=== PATIENT | female | born 1990 ===

== ENCOUNTER 2020-11-10 09:09 | Outpatient (CLI) | payer MEDICAID, SELFPAY ==
--- NOTE | 2020-11-09 | DI.US_ITS ---
Exam(s) US OB AUNDREA WEIGHT EXAM: US OB AUNDREA WEIGHT CLINICAL HISTORY: GROWTH SCAN,HYPERTENSION,O10.919. TECHNIQUE: Transabdominal obstetrical ultrasound performed. COMPARISON: No exams were available for comparison FINDINGS: Transabdominal obstetrical ultrasound performed. FINDINGS: Number of fetuses: One. position: Cephalic. Placental location: Anterior. There is a grade 1 placenta. No evidence of previa. BIOMETRIC DATA: BPD: 85 mm = 34 weeks 1 day HC: 297 mm = 32 weeks 6 days AC: 295 mm = 33 weeks 3 days FL: 67 mm = 34 weeks 4 days EFW: 2275 grms 70% Composite Age: 33 weeks 5 days EDC: 12/23/2020 Heart Rate: 137BPM Amniotic fluid index: 13.5 cm. Visually, amount of fluid is within normal limits. IMPRESSION: 1. Single live intrauterine gestation as above. 2. Estimated weight is 5gms. 3. Amniotic fluid index is 13.5 cm. Visually within normal limits. DATA REPOSITORY:
--- NOTE | 2020-11-26 09:58 | W.ANESCON ---
General Date of Service Date of Service: 11/26/20 Reason for Consult Requesting Provider: Sandra Steve How Consult Conducted:: Seen in Office Reason for Consult:: Back pain, herniated discs, epidural questions Consult Recommendation after Review:: 30 year old patient with history of chronic back pain, prior back surgery (as a teen) to address herniated discs (L1-L5). Patient is not being followed by neurosurgery at this time. Planned epidural for pain management, informed patient to request anesthesia services earlier than later in labor as placement of catheter may be technically challenging and ultrasound may be necessary. Patient verbalizes understanding of the plan. Height: 6 ft 1 in Weight: 133.3 kg Body Mass Index (BMI): 38.7 Meds Allergies and Home Medications Allergies Allergy/AdvReac Type Severity Reaction Status Date / Time No Known Allergies Allergy Verified 11/26/20 08:43 Home Medication Medication Instructions Recorded prenat.vits,gigi,slu-bdnd-gzrlv 1 tab PO DAILY 11/26/20 sertraline 100 mg tablet 100 mg PO DAILY 11/26/20 sertraline 50 mg tablet 50 mg PO DAILY 11/26/20 [facility] Active Problems Active Problems: Problem Status Onset Code Z34.90 Vital Signs & Lab Results Point of Care Results Nursing Point of Care Results: No Data to Display Lab Results Blood Type / Crossmatch: No Data to Display Complete Blood Count: No Data to Display Complete Metabolic Panel: No Data to Display Liver Function Panel: No Data to Display Coagulation Panel: No Data to Display Cardiac Panel: No Data to Display Arterial Blood Gas: No Data to Display Venous Blood Gas: No Data to Display Pancreas Panel: No Data to Display Thyroid Panel: No Data to Display Infectious Disease: No Data to Display Blood Cultures: No Data to Display Toxicology Panel: No Data to Display Panel: No Data to Display
[2020-11-26 10:07] VITALS: BMI 38.7
== END 2020-11-10 09:29 ==
PROVIDERS: PCP Nurse Practitioner Family; Visit Provider Nurse Practitioner Family
DX: O10.913 Unspecified pre-existing hypertension complicating pregnancy, third trimester (principal); Z34.90 Encounter for supervision of normal pregnancy, unspecified, unspecified trimester; Z3A.32 32 weeks gestation of pregnancy
CPT/HCPCS: 76816

== ENCOUNTER 2020-12-22 08:11 | Inpatient (IN) | payer MEDICAID, SELFPAY ==
[2020-12-22] VITALS (75 sets, daily range): BP systolic 98–182; BP diastolic 54–93; PULSE 60–105; RESP 20; TEMP 36.4–36.8; O2SAT 96–100; BMI 36.3
--- NOTE | 2020-12-22 08:22 | HPE_ITS ---
Date of service: 12/22/20 Time of Service: 08:23 Assessment and Plan Assessment and plan (1) Encounter for induction of labor: Status: Acute Assessment and plan: 30 yo at 39 weeks here for IOL for cHTN. GBS neg. Favorable cervix with Benavidez score 8. NST cat I. - cook catheter and miso placed. Cook with 60/40mL in uterine/vaginal balloons. - anticipate pitocin later today - patient desires epidural (2) Chronic hypertension affecting : Status: Acute Assessment and plan: BP during has remained <140/90 in the office. Preeclampsia labs have been negative previously. Current BP is within normal limits. IOL recommended by M no later than 39 weeks due to BPs > 130/80 pre . - continue monitoring BPs - low threshold for PEC labs if BPs increase or patient develops symptoms (3) Depression affecting : Status: Chronic Assessment and plan: Stable on zoloft, will continue. Engaged in therapy as well. (4) Iron deficiency: Status: Acute Assessment and plan: S/p iron transfusions during third trimester. Hgb wnl. Will check iron studies . 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 HAM Calculator Estimated Delivery Date Method Current Current Estimate 12/29/20 Ultrasound #2 39w 0d Comments: 30 yo here at 39 weeks for induction of labor for chronic hypertension. GBS neg. RI. O pos, ab neg. BPs have been under 140/90 although increasing over the last week with some headaches, now resolved. Growth scan at 32 weeks with appropriate growth. Also with history of diabetes prior to gastric bypass surgery at age 17. Blood glucose has been well controlled with diet. Transfer of care to [facility] from [place] at 21.6 weeks. Weekly NSTs have been category I. Obesity, prepregnancy BMI >30, weight gain 14 lbs during this . Has history of disc herniations, seen by anesthesia, anticipate no issues with epidural. Mood has been stable on zoloft. Marijuana use early in , stopped in second trimester, no other substance use. Reports intermittent contractions, good movement, no bleeding or loss of fluid. History of Present Expected Delivery Route/Plan after IOL. Specific Issues/Plan 1. CHTN: currently well controlled without medication 2. A1GDM: continue finger sticks. 3. Depression: continue zoloft 4. BMI >30 s/p gastric bypass surgery. Monitor weight gain. 5. Herniated discs: anesthesia consult 6. Hx anemia with iron transfusions. Currently doing well. Repeat labs. Assessment: History Reviewed & Current Informed Consent Informed Consent: Induction of Labor and Risk,Benefits,Alternatives Discussed Review of Systems All systems reviewed & are unremarkable except as noted in HPI and below PFSH Social History Smoking/Tobacco Use Status: Never Smoking risk assessment performed?: Yes Alcohol Intake: former Drug use: Daily Substance use type: marijuana Details: has not used since third trimester History History 1 Para 0 Hx # Term Pregnancies Multiple births Hx # Pregnancies Ectopic pregnancies AB induced Hx Number of Living Children AB spontaneous Meds Allergies and Home Medications Allergies Allergy/AdvReac Type Severity Reaction Status Date / Time bee venom protein (honey bee) Allergy Severe Swelling/Ed Unverified 12/22/20 05:03 jonathan acetaminophen [From Percocet] Allergy Nausea Unverified 12/22/20 05:03 adhesive tape Allergy Skin Rash Unverified 12/22/20 05:03 codeine Allergy Hives Unverified 12/22/20 05:03 hydrocodone [From Vicodin] Allergy Nausea Unverified 12/22/20 05:03 oxycodone [From Percocet] Allergy Nausea Unverified 12/22/20 05:03 lactose AdvReac Unverified 12/22/20 05:03 Home Medications Medication Instructions Recorded Confirmed Type prenat.vits,gigi,xlp-vefq-khckf 1 tab PO DAILY 11/26/20 11/26/20 History sertraline 100 mg tablet 100 mg PO DAILY 11/26/20 11/26/20 History sertraline 50 mg tablet 50 mg PO DAILY 11/26/20 11/26/20 History albuterol sulfate 2 puff INHALATION Q6H PRN PRN 12/22/20 12/22/20 History fluticasone propion-salmeterol 2 puff INHALATION BID 12/22/20 12/22/20 History [Advair HFA] omeprazole 12/22/20 History Exam Physical Exam Vital signs: Pulse BP 71 120/68 12/22/20 07:48 12/22/20 07:48 Vital Signs Reviewed: Yes Constitutional Constitutional: no acute distress Detailed Labor and Delivery Exam Dilation: 2 Effacement (%): 80 station: -2 Cervix position: mid Consistency: soft Benavidez Score: Cervical Points Exam 0 1 2 3 Dilation Closed 1-2cm 3-4 cm 5-6cm Effacement 0-30% 40-50% 60-70% 80% Consistency Firm Medium Soft Station -3 -2 -1,0 +1,+2 Position Posterior Mid Anterior BENAVIDEZ Score(Cervical Ripeness Score): 8 Amniotic Membrane Status: Intact Contraction Frequency(min): 0 Fetus A Heart Rate Baseline: 135 Monitor Accelerations: 15 X 15 Monitor Decelerations: None Variability: Moderate (6-25 BPM) Presentation: Vertex Categories: Category I Est. Weight: 3628.739 g Respiratory Exam Respiratory Exam: Normal Cardiovascular Exam Cardiovascular Exam: Normal Abdominal Exam Abdominal Exam: Normal Extremities Exam Extremities Exam: Normal Skin Exam Skin Exam: Normal Neurological Exam Neurological Exam: Normal Psychiatric Exam Psychiatric Exam: Normal Results Results Group Beta Strep: Negative Blood Type: O+ Rubella Status: Immune Varicella Immunity: Immune Risk Assessment Risk for Shoulder Dystocia Historical/Initial OB: POSITIVE FOR: Pre- BMI>30 40 Weeks: NEGATIVE FOR: EFW> 4500 gms, Maternal Weight Gain >40lb or Post Dates Increased Risk?: Yes Risk for Pre-Eclampsia Yes, if one or more: POSTIVE FOR: Chronic HTN Yes, if 2 or more: POSITIVE FOR: BMI>30 and ethinicty Risk for Post- Hemorrhage At Risk?: No Risks Reviewed Risks Reviewed Upon Admission: Yes
[2020-12-22 08:51] LABS: HCT 38.4 % (36.0-46.0); HGB 12.4 g/dL (11.2-15.7); MCH 29.3 pg (27.0-33.0); MCHC 32.3 % (32.0-36.0); MCV 90.8 fL (80-95); MPV 10.2 fL (8.0-11.0); Platelet Count 184 10^3/uL (130-400); RBC 4.23 10^6/uL (3.93-5.22); RDW 13.5 % (11.7-14.6); RDW-SD 45.5 fL; WBC 11.08 10^3/uL (4.4-10.8)
[2020-12-22] MEDS: miSOPROStol 25 MCG TAB VG (09:15)
[2020-12-22 10:37] LABS: Source Nasal/Nares
[2020-12-22 11:37] LABS: COVID-19 PCR Negative (Negative)
[2020-12-22] MEDS: Normal Saline Flush 10 ML SYR IVP ×3 (12:42→17:00)
--- NOTE | 2020-12-22 13:07 | W.PM.OBNL1 ---
Date of service: 12/22/20 Time of Service: 13:07 Informed Consent Informed Consent: Induction of Labor and Risk,Benefits,Alternatives Discussed Pelvic Exam Dilation: 4 Effacement (%): 80 station: -2 Cervix Position: mid Consistency: soft Vaginal Exam Presentation: Vertex Contractions Contraction Frequency(min): 6 Contraction Duration(sec): 40-60 Intensity: Mild/Moderate Fetus A Monitor: External (US) Heart Rate Baseline: 140 Presentation: Vertex Variability: Moderate (6-25 BPM) Categories: Category I Accelerations: 15 X 15 Decelerations: None Amniotic Membrane Status: Intact Assessment and Plan Assessment and plan (1) Encounter for induction of labor: Status: Acute Assessment and plan: Making good progress with favorable cervix. FHT cat 1. Contractions present but irregular. Balloon removed and pitocin started. Discussed case with anesthesia who are anticipating difficult epidural placement, plan to touch base an hour after pitocin is started and assess putting in epidural catheter without medication vs low dose medication before patient is too uncomfortable to sit completely still for long duration for epidural placement. (2) Chronic hypertension affecting : Status: Acute Assessment and plan: BP has been within normal limits. Objective Abnormal lab results 12/22/20 Range/Units 08:34 WBC 11.08 H (4.4-10.8) 10^3/uL Temp Pulse Resp BP 36.8 C 67 20 126/73 12/22/20 08:41 12/22/20 11:23 12/22/20 08:41 12/22/20 11:23 Laboratory Results WBC 11.08 10^3/uL (4.4-10.8) H 12/22/20 08:34 RBC 4.23 10^6/uL (3.93-5.22) 12/22/20 08:34 Hgb 12.4 g/dL (11.2-15.7) 12/22/20 08:34 Hct 38.4 % (36.0-46.0) 12/22/20 08:34 MCV 90.8 fL (80-95) 12/22/20 08:34 MCH 29.3 pg (27.0-33.0) 12/22/20 08:34 MCHC 32.3 % (32.0-36.0) 12/22/20 08:34 RDW 13.5 % (11.7-14.6) 12/22/20 08:34 Plt Count 184 10^3/uL (130-400) 12/22/20 08:34 MPV 10.2 fL (8.0-11.0) 12/22/20 08:34 COVID-19 Source Nasal/Nares 12/21/20 10:17 SARS-CoV-2 (PCR) Negative (Negative) 12/21/20 10:17 Patient ABO/Rh O Positive 12/22/20 08:34 Antibody Screen NEGATIVE 12/22/20 08:34 Subjective Interval history since last seen: Feeling uncomfortable with pelvic pressure and intermittent back pain. Results Hemoglobin/Hematocrit: Hgb 12.4 g/dL (11.2-15.7) 12/22/20 08:34 Hct 38.4 % (36.0-46.0) 12/22/20 08:34 Abnormal Lab Findings: Abnormal Labs 12/22/20 08:34 WBC 11.08 H
--- NOTE | 2020-12-22 13:43 | W.ANESPRE ---
General Info Date of Service Date Performed: 12/22/20 Height: 6 ft 4 in Weight: 135.624 kg Body Mass Index (BMI): 36.3 Meds Allergies and Home Medications Allergies Allergy/AdvReac Type Severity Reaction Status Date / Time bee venom protein (honey bee) Allergy Severe Swelling/Ed Unverified 12/22/20 05:03 jonathan acetaminophen [From Percocet] Allergy Nausea Unverified 12/22/20 05:03 adhesive tape Allergy Skin Rash Unverified 12/22/20 05:03 codeine Allergy Hives Unverified 12/22/20 05:03 hydrocodone [From Vicodin] Allergy Nausea Unverified 12/22/20 05:03 oxycodone [From Percocet] Allergy Nausea Unverified 12/22/20 05:03 lactose AdvReac Unverified 12/22/20 05:03 Home Medication Medication Instructions Recorded prenat.vits,gigi,xbx-yynm-udlfz 1 tab PO DAILY 11/26/20 sertraline 100 mg tablet 100 mg PO DAILY 11/26/20 sertraline 50 mg tablet 50 mg PO DAILY 11/26/20 albuterol sulfate 2 puff INHALATION Q6H PRN PRN 12/22/20 fluticasone propion-salmeterol 2 puff INHALATION BID 12/22/20 [Advair HFA] omeprazole 12/22/20 Current Visit Medications: Current Medications Generic Name Dose Route Start Last Admin Trade Name Freq PRN Reason Stop Dose Admin Sodium Chloride 500 mls @ 0 mls/hr 12/22/20 08:11 Saline 500ml Bag IV PRN PRN As Directed Oxytocin/Sodium Chloride 30 unit in 500 mls @ 2 mls/hr 12/22/20 13:15 Pitocin/Normal Saline IV INFUSION KEVIN Protocol 2 MILLIUNITS/MIN IV Miscellaneous Supplies 1 each 12/22/20 08:15 Iv Access IV DIRECTED KEVIN Misoprostol 25 mcg 12/22/20 09:00 12/22/20 09:15 Misoprostol 25 Mcg Tab VG 25 mcg Q4H KEVIN Administration Sertraline HCl 150 mg 12/23/20 08:30 Sertraline 50 Mg Tab PO DAILY KEVIN Sodium Chloride 0 ml 12/22/20 08:11 12/22/20 12:42 Normal Saline Flush 10 Ml Syr IVP 10 ml PRN PRN Administration Sodium Chloride 0 ml 12/22/20 08:11 Normal Saline Flush 10 Ml Syr IVP PRN PRN Terbutaline Sulfate 0.25 mg 12/22/20 08:11 Terbutaline 1 Mg/Ml Vial SC PRN PRN Zolpidem Tartrate 10 mg 12/22/20 21:00 Zolpidem 5 Mg Tab PO 12/23/20 06:00 2100 KEVIN PFSH Active Problems Active Problems: Problem Status Onset Code Z34.90 Encounter for induction of labor Z34.90 Chronic hypertension affecting O10.919 Depression affecting O99.340, F32.A Iron deficiency E61.1 Previous gastric bypass affecting in third trimester, antepartum O99.843 Tobacco Smoking/Tobacco Use Status: Never Alcohol Alcohol Intake: former Substance Use Substance use: Daily Substance use type: marijuana Details: has not used since third trimester Prental History History 1 Para 0 Hx # Term Pregnancies Multiple births Hx # Pregnancies Ectopic pregnancies AB induced Hx Number of Living Children AB spontaneous Vital Signs and Lab Results Vital Signs Most Recent Vital Signs in EMR: Most Recent Vital Signs Temp Pulse Resp BP 36.8 C 68 20 126/66 12/22/20 13:16 12/22/20 13:14 12/22/20 08:41 12/22/20 13:14 Lab Results Result Diagrams: 12/22/20 08:34 Blood Type / Crossmatch: Patient ABO/Rh O Positive 12/22/20 08:34 12/22/20 Antibody Screen NEGATIVE 12/22/20 08:34 12/22/20 Complete Blood Count: White Blood Count 11.08 10^3/uL (4.4-10.8) H 12/22/20 08:34 12/22/20 Red Blood Count 4.23 10^6/uL (3.93-5.22) 12/22/20 08:34 12/22/20 Hemoglobin 12.4 g/dL (11.2-15.7) 12/22/20 08:34 12/22/20 Hematocrit 38.4 % (36.0-46.0) 12/22/20 08:34 12/22/20 Platelet Count 184 10^3/uL (130-400) 12/22/20 08:34 12/22/20 Complete Metabolic Panel: No Data to Display Liver Function Panel: No Data to Display Coagulation Panel: No Data to Display Cardiac Panel: No Data to Display Arterial Blood Gas: No Data to Display Venous Blood Gas: No Data to Display Pancreas Panel: No Data to Display Thyroid Panel: No Data to Display Infectious Disease: Coronavirus (COVID-19)(PCR) Negative (Negative) 12/21/20 10:17 12/21/20 Coronavirus 2019 Source Nasal/Nares 12/21/20 10:17 12/21/20 Blood Cultures: No Data to Display Toxicology Panel: No Data to Display Panel: No Data to Display Anesthesia Assessment and Plan Anesthesia History Personal History: No History of Anesthesia Complications Family History: No Family History of Anesthesia Complications Exercise Tolerance Exercise Tolerance: Metabolic Equivalents>4 Pertinent Negatives Pertinent Negatives: No Symptoms of GERD Cardiac & Pulmonary Exam Cardiac Exam: Normal S1/S2 Heart Sounds Pulmonary Exam: Clear Bilateral Breath Sounds Airway Exam Known Difficult Airway: No Mallampati Class: 1 Mouth Opening: Normal (> 3cm) Thyromental Distance: Greater than 3 cm Neck Range of Motion: Full ROM Neck Circumference: Normal Teeth Condition: Normal Dentition ASA Classification ASA Score: ASA 2 Emergency Case?: No NPO Status NPO Status: Full Stomach Status Status: Confirmed Anesthesia Plan Resuscitation Status: Full Code Anesthesia Technique: Epidural Anesthesia Airway Planned: Natural Airway Monitors Used: Standard Monitors
[2020-12-22] MEDS: Lactated Ringers 1,000 ML 125 ML IV (14:17)
[2020-12-22] MEDS: Oxytocin/Normal Saline 30 UNIT/500 ML BAG 2 UNITS IV (14:18)
--- NOTE | 2020-12-22 15:00 | LC_ITS ---
Date of service: 12/22/20 Time of Service: 13:50 Note Note: Visited Zabrina and her mom Shawna to further introduce services and answer questions about . It's so good to meet you! Thank you for delivering at [facility]. Zabrina desires to breastfeed. Her mother is also present. Both have questions. Zabrina is inquiring about skin to skin, when will first breastfeed, how often will feed and how to know getting enough, noting she has materials from home health. Shawna inquired about pumping and when to introduce a bottle, how much milk Zabrina will produce on each day and how much Zabrina's child will take. A - REviewed information from the h/o in the notebook. Answered parent questions, reinforceing benefit or responding to infant feeding cues, reinforced parent choice around infant feeding, and collaborative care model /c pediatricians. R - Parent and grandmother state comfort /c feeding information and written resources. Education Reviewed: Skin to Skin, Feed early and often, Feeding Cues, Position and Attachment, How often and How long, I know my baby is getting enough milk, Hand Expression, Engorgement, Maintaining Supply, Babies are Sensitive, Breastmilk is all your baby needs for 6 months-avoid pacificer/formula and When to call for help Written Materials Provided: ([facility]) Subjective Identifiers Parent's Name: Zabrina Nurse Parent's Date of : 1990 Concerns Parental Concerns: induction of labor, answering questions about Background Parent Feeding Goals: Experience: First Time Support: Supportive Family Feeding Preference: Exclusive Pump Availability: Plans to Obtain Pump Has Patient Been Counseled on Single User Pump Recommendations by CDC?: Yes Maternal Hx Maternal Medication Hx: PNV, sertraline 100 mg daily, sertraline 50 mg daily, fluticasone 2 puffs bid, albuterol prn, omeprazole Medical Hx: chronic hypertension, depression, iron deficiency, previous gastric bipass Delivery Hx Gestational Age Weeks/Days: 39 weeks Results Infant Weight/I&O Weight Change: Weight 135.624 kg I&O: 12/21/20 12/21/20 12/22/20 12/22/20 11:59 23:59 11:59 23:59 Other: Urine Color Light Mayda Weight 135.624 kg
[2020-12-22] MEDS: FentaNYL/ROPIvacaine 2 mcg/ml and 0.1% 200 ML CADD Cassette EP ×2 (16:07→16:50)
--- NOTE | 2020-12-22 16:22 | W.ANESNEU ---
Epidural/Spinal Catheter Date Performed: 12/22/20 Procedure Start: 14:45 Procedure Stop: 16:05 Requesting Provider: Velia Trujillo Procedure Location: Obstetrics Reason Performed: Labor Epidural Standard Monitors Applied: Blood Pressure, SpO2 and See EMR for corresponding vital signs Patient Position: Sitting Sedation Given (Indicate Dose Given): No Sedation given Patient Mental Status: Awake Sterility: Hand Hygiene and Surgical Cap Procedure Location: L4-L5 Interspace Epidural Needle: Tuohy 18 Gauge Needle Length: 3.5 Inch Needle Approach: Midline Epidural Procedure: Skin Prepped, Sterile Drape Placed, 1% Lidocaine to skin and subcutaneous tissue with 25G needle, Tuohy Needle placed, Bone Contacted despite needle repositioning, ANTHONY to Saline Used, Negative CSF Flow and Tuohy Needle Removed Catheter Placed?: Catheter Placed Test Dose (Indicate Dose Given): 3ml 1.5% Lidocaine with 1:200K Epinephrine Given Loss of Resistance Depth (cm): 9 Catheter depth at skin (cm): 17 Dressing: Sorbaview Dressing Placed Epidural Provider Bolus (Indicate Dose Given): None Given Additives (Indicate Dose Given ): None Infusion Medication: Medication Infusion Began Medication Infusion: Ropivacaine 0.1% with Fentanyl 2mcg/ml Maintenance Infusion Rate (ml/hour): 12 PCEA Bolus Dose (ml): 5 Block Level: N/A Paresthesia: Left Paresthesia Duration: Transient and Right (Patient able to verbalize after needle repositioning that paresthesia had resolved) Paresthesia Duration: Transient Ultrasound: Sterile probe cover and gel used Ultrasound Image Saved?: No Number of Attempts (See previous attempts in note section): 5 Procedure Tolerated: Patient tolerated well Procedure Outcome: Successful Procedure Comment:: Known prior back surgery and likely difficult epidural placement. Attempt x3 interspaces without success by TESHA Huerta. Missael Coto CRNA at bedside with ultrasound. Prior attempts confirmed to be midline, attempt x1 Nnamdi unsuccessful. Deanna attempt on last effort with success. Patient tolerated procedure well and thankful. Performed By: Shanna Huerta
--- NOTE | 2020-12-22 16:38 | W.PM.OBNL1 ---
Date of service: 12/22/20 Time of Service: 16:39 Informed Consent Informed Consent: Induction of Labor and Risk,Benefits,Alternatives Discussed Pelvic Exam Dilation: 4.5 Effacement (%): 80 station: -2 Cervix Position: anterior Consistency: soft Vaginal Exam Presentation: Vertex Contractions Monitor Mode: External Fetus A Heart Rate Baseline: 145 Presentation: Vertex Variability: Moderate (6-25 BPM) Categories: Category I Accelerations: Absent Decelerations: None Amniotic Membrane Status: Intact Assessment and Plan Assessment and plan (1) Encounter for induction of labor: Status: Acute Assessment and plan: here for IOL for chronic hypertension, induction complicated by epidural side effect of symptomatic hypotension with distress prompting epidural to be turned off, pitocin to be stopped, and phenylephrine and IVF bolus given. BP and FHT made good recovery. At this time, FHT cat I, BP wnl and patient feeling improved. Will restart pitocin. Plan to call anesthesia to restart epidural at lower dose once patient is feeling uncomfortable again. Dr. Overton updated on the above described events. Objective Abnormal lab results 12/22/20 Range/Units 08:34 WBC 11.08 H (4.4-10.8) 10^3/uL Temp Pulse Resp BP Pulse Ox 36.8 C 99 H 20 120/58 L 98 12/22/20 13:16 12/22/20 16:37 12/22/20 08:41 12/22/20 16:32 12/22/20 16:37 Laboratory Results WBC 11.08 10^3/uL (4.4-10.8) H 12/22/20 08:34 RBC 4.23 10^6/uL (3.93-5.22) 12/22/20 08:34 Hgb 12.4 g/dL (11.2-15.7) 12/22/20 08:34 Hct 38.4 % (36.0-46.0) 12/22/20 08:34 MCV 90.8 fL (80-95) 12/22/20 08:34 MCH 29.3 pg (27.0-33.0) 12/22/20 08:34 MCHC 32.3 % (32.0-36.0) 12/22/20 08:34 RDW 13.5 % (11.7-14.6) 12/22/20 08:34 Plt Count 184 10^3/uL (130-400) 12/22/20 08:34 MPV 10.2 fL (8.0-11.0) 12/22/20 08:34 COVID-19 Source Nasal/Nares 12/21/20 10:17 SARS-CoV-2 (PCR) Negative (Negative) 12/21/20 10:17 Patient ABO/Rh O Positive 12/22/20 08:34 Antibody Screen NEGATIVE 12/22/20 08:34 Subjective Interval history since last seen: Received epidural after a prolonged attempt made difficult by former back surgery with scar tissue.. Approximately 30 minutes after receiving epidural at 1607, patient began to feel nauseated and BP trended down. Lowest was 98/54 at 1652 and she c/o numbness to her chest, seeing double and nausea. FHR became borderline tachycardic around 160 with minimal variability. LR bolus started and anesthesia paged who came immediately, gave phenylephrine with gradual improvement in blood pressure. Pitocin was stopped as well. She also received zofran for nausea. At this time, patient feeling improved with improved blood pressure and improved FHT. Results Hemoglobin/Hematocrit: Hgb 12.4 g/dL (11.2-15.7) 12/22/20 08:34 Hct 38.4 % (36.0-46.0) 12/22/20 08:34 Abnormal Lab Findings: Abnormal Labs 12/22/20 08:34 WBC 11.08 H
[2020-12-22] MEDS: Ondansetron 4 MG/2 ML VIAL IVP (16:59)
--- NOTE | 2020-12-22 19:33 | W.PM.OBNL1 ---
Date of service: 12/22/20 Time of Service: 19:33 Informed Consent Informed Consent: Induction of Labor and Risk,Benefits,Alternatives Discussed Pelvic Exam Dilation: 4 Effacement (%): 80 station: -2 Cervix Position: anterior Consistency: soft Contractions Contraction Frequency(min): 4-6 Fetus A Heart Rate Baseline: 145 Variability: Moderate (6-25 BPM) Categories: Category I Accelerations: 15 X 15 Decelerations: None Amniotic Membrane Status: Intact Assessment and Plan Assessment and plan (1) Encounter for induction of labor: Status: Acute Assessment and plan: Has made no cervical change since last check but pitocin has been off. Now restarting and titrating up. Expect her to make progress. Plan to AROM in an hour. Discussed case with anesthesia and Dr. Overton. Anesthesia will restart epidural when patient is uncomfortable. Objective Abnormal lab results 12/22/20 Range/Units 08:34 WBC 11.08 H (4.4-10.8) 10^3/uL Temp Pulse Resp BP Pulse Ox 36.4 C L 82 20 143/72 H 100 12/22/20 17:06 12/22/20 19:32 12/22/20 08:41 12/22/20 19:32 12/22/20 17:22 Laboratory Results WBC 11.08 10^3/uL (4.4-10.8) H 12/22/20 08:34 RBC 4.23 10^6/uL (3.93-5.22) 12/22/20 08:34 Hgb 12.4 g/dL (11.2-15.7) 12/22/20 08:34 Hct 38.4 % (36.0-46.0) 12/22/20 08:34 MCV 90.8 fL (80-95) 12/22/20 08:34 MCH 29.3 pg (27.0-33.0) 12/22/20 08:34 MCHC 32.3 % (32.0-36.0) 12/22/20 08:34 RDW 13.5 % (11.7-14.6) 12/22/20 08:34 Plt Count 184 10^3/uL (130-400) 12/22/20 08:34 MPV 10.2 fL (8.0-11.0) 12/22/20 08:34 COVID-19 Source Nasal/Nares 12/21/20 10:17 SARS-CoV-2 (PCR) Negative (Negative) 12/21/20 10:17 Patient ABO/Rh O Positive 12/22/20 08:34 Antibody Screen NEGATIVE 12/22/20 08:34 Subjective Interval history since last seen: Patient starting to regain sensation in her lower extremities. Pitocin was restarted and she is beginning to feel contractions again. She otherwise is feeling well. Results Hemoglobin/Hematocrit: Hgb 12.4 g/dL (11.2-15.7) 12/22/20 08:34 Hct 38.4 % (36.0-46.0) 12/22/20 08:34 Abnormal Lab Findings: Abnormal Labs 12/22/20 08:34 WBC 11.08 H
--- NOTE | 2020-12-22 20:13 | NUR.NOTE ---
Nursing Note: 1924 i went into straight cath the patient she had passed 2 plumg sized clots and bleeding is dark red coming from the vagina dr hua hernandez shown clots and pad . md in to do vag exam pt remains 4 cms 50% effaced and minus 2 . vitals are stable straight cath'd for 100 cc's of christian urine
[2020-12-22] MEDS: MORPHine 10 MG/ML VIAL IM (21:04)
--- NOTE | 2020-12-22 21:23 | W.PM.OBNL1 ---
Date of service: 12/22/20 Time of Service: 21:23 Informed Consent Informed Consent: Induction of Labor and Risk,Benefits,Alternatives Discussed Pelvic Exam Dilation: 4 Effacement (%): 80 station: -2 Contractions Monitor Mode: Palpation Contraction Frequency(min): 2-3 Fetus A Monitor: External (US) Heart Rate Baseline: 150 Presentation: Vertex Variability: Moderate (6-25 BPM) Categories: Category I Accelerations: 15 X 15 Decelerations: None Amniotic Membrane Status: Intact Assessment and Plan Assessment and plan (1) Encounter for induction of labor: Status: Acute Assessment and plan: Zabrina is very uncomfortable with contractions. Unable to use epidural catheter placed earlier per anesthesia. No cervical change since this morning but we have been unable to increase pitocin to obtain regular contractions due to 2 hour epidural placement, distress from hypotension, and now patient's pain. Pitocin stopped. Morphine IM given. Plan at this time to try to have patient rest overnight and regroup in the morning. Dr. Overton present at bedside for discusions with patient. Objective Abnormal lab results 12/22/20 Range/Units 08:34 WBC 11.08 H (4.4-10.8) 10^3/uL Temp Pulse Resp BP Pulse Ox 36.4 C L 98 H 20 169/84 H 100 12/22/20 17:06 12/22/20 21:02 12/22/20 08:41 12/22/20 21:02 12/22/20 17:22 Laboratory Results WBC 11.08 10^3/uL (4.4-10.8) H 12/22/20 08:34 RBC 4.23 10^6/uL (3.93-5.22) 12/22/20 08:34 Hgb 12.4 g/dL (11.2-15.7) 12/22/20 08:34 Hct 38.4 % (36.0-46.0) 12/22/20 08:34 MCV 90.8 fL (80-95) 12/22/20 08:34 MCH 29.3 pg (27.0-33.0) 12/22/20 08:34 MCHC 32.3 % (32.0-36.0) 12/22/20 08:34 RDW 13.5 % (11.7-14.6) 12/22/20 08:34 Plt Count 184 10^3/uL (130-400) 12/22/20 08:34 MPV 10.2 fL (8.0-11.0) 12/22/20 08:34 COVID-19 Source Nasal/Nares 12/21/20 10:17 SARS-CoV-2 (PCR) Negative (Negative) 12/21/20 10:17 Patient ABO/Rh O Positive 12/22/20 08:34 Antibody Screen NEGATIVE 12/22/20 08:34 Subjective Interval history since last seen: In further discussion with anesthesia, they are not comfortable with using the epidural catheter that was placed due to concern it may be in the subdural space. Discussed with Dr. Overton, present at bedside, and Shanna Huerta CRNA, and turned pitocin off. Will try IM morphine to give patient some relief. Zabrina is uncomfortable with contractions. Occurring every 2-3 minutes but not picked up on toco currently. Back discomfort with contractions. Results Hemoglobin/Hematocrit: Hgb 12.4 g/dL (11.2-15.7) 12/22/20 08:34 Hct 38.4 % (36.0-46.0) 12/22/20 08:34 Abnormal Lab Findings: Abnormal Labs 12/22/20 08:34 WBC 11.08 H
--- NOTE | 2020-12-22 21:26 | W.OBCONSULT ---
Date of service: 12/22/20 Time of Service: 21:27 Assessment and Plan Assessment and plan (1) Chronic hypertension affecting : Status: Acute Assessment and plan: Patient in the process of labor induction, however epidural anesthesia is in adequate without ability to rebolus or utilized catheter due to placement. Patient has no desire to have pain or discomfort during her procedure or delivery. She initially is requesting section. We did discuss risk benefits and alternatives of section and the fact that a vaginal delivery would be less risk for both her and her unborn child. She received 1 dose of morphine IM pain control. Will reevaluate with cervical examination to assess progress. In addition, with normal labor progress, the patient must be able and willing to push adequately once completely dilated. I do have a moderate amount of concern that the patient will be able to do this. We will reevaluate her cervix in the near future and assess cervical change. (2) Iron deficiency: Status: Acute (3) Previous gastric bypass affecting in third trimester, antepartum: Status: Acute (4) : Status: Acute Qualifiers: Weeks of gestation: 39 weeks Qualified Code(s): Z3A.39 - 39 weeks gestation of History of Present Illness History of Present Illness Chief Complaint: Labor after labor induction due to chronic hypertension and diet-controlled Narrative: Kindly asked to see in consultation this 30-year-old 1 para 0 who is here today for induction of labor at term due to chronic hypertension which has been stable and a history of diabetes, diet controlled. She also has a history of chronic back pain with herniated disks and a remote history of gastric bypass surgery at the age of 17. She presented to the center for labor induction. She had a Cook balloon placed for cervical ripening and found to be 4 cm at the removal of the Cook balloon. She had attempt at placement of an epidural catheter for pain control as this was patient's request, though catheter placement was significantly difficult and after test dosing, had profound hypotension and symptoms out of proportion with appropriately placed epidural. For this reason the epidural infusion was discontinued per anesthesia. Patient request pain control and is georgina approximately every 3 minutes on Pitocin at 6 milliunits. In light of cervix being 4 to 5 cm, regular painful contractions, and inadequate analgesia, Pitocin was discontinued. Conversation was had with both Dr. Park and Shanna Huerta from anesthesia regarding progress from here. At this point, patient is requesting further pain control. We are unable to utilize her epidural catheter as it is currently placed. She did consent to receiving intramuscular narcotic pain control with morphine and further reevaluation. Consults Consult date: 12/22/20 Requesting physician: Velia Trujillo Review of Systems Cardiovascular Cardiovascular: Denies chest pain, Denies irregular heart rhythm and Denies dyspnea Respiratory Respiratory: Denies cough and Denies dyspnea Musculoskeletal Musculoskeletal: Reports back pain Psychiatric Psychiatric: Reports system reviewed and no additional complaints, except as documented [facility] Medical History (Updated 12/22/20 @ 21:35 by Suzie Overton DO) Herniated intervertebral disc Surgical History (Updated 12/22/20 @ 21:34 by Suzie Overton DO) History of gastric bypass Social History Smoking/Tobacco Use Status: Never Smoking risk assessment performed?: Yes Alcohol Intake: former Drug use: Daily Substance use type: marijuana Details: has not used since third trimester History History 1 Para 0 Hx # Term Pregnancies Multiple births Hx # Pregnancies Ectopic pregnancies AB induced Hx Number of Living Children AB spontaneous Exam Narrative Exam Narrative: Patient seen in the labor room. Uncomfortable with uterine contractions. Laying in the right lateral decubitus position, uncomfortable to lay on her back Const General: cooperative, uncomfortable and well developed Nutritional Appearance: overweight Orientation: alert and oriented x3 Eyes General: appearance normal, both eyes and all related structures Neck Neck: normal visual inspection Resp Effort & Inspection: normal respiratory effort Cardio Rate: regular rate GI Inspection: normal to inspection Palpation: soft, not firm and no guarding External Female Exam: normal external appearance OB/External & Speculum: bleeding (Bloody show) Manual OB Exam: dilated 5, effaced 75% and station -2 Neuro General: patient alert and patient oriented x3 Extrem General: no clubbing, cyanosis or edema Results Last Vital Signs Temp 97.5 F L 12/22/20 17:06 Pulse 98 H 12/22/20 21:02 Resp 20 12/22/20 08:41 BP 169/84 H 12/22/20 21:02 Pulse Ox 100 12/22/20 17:22 Labs Result diagrams: 12/22/20 08:34 Labs: Laboratory Results - last 24 hr 12/21/20 12/22/20 12/22/20 10:17 08:34 08:34 WBC 11.08 H RBC 4.23 Hgb 12.4 Hct 38.4 MCV 90.8 MCH 29.3 MCHC 32.3 RDW 13.5 Plt Count 184 MPV 10.2 COVID-19 Source Nasal/Nares SARS-CoV-2 (PCR) Negative Patient ABO/Rh O Positive Antibody Screen NEGATIVE
--- NOTE | 2020-12-22 22:18 | PGE_ITS ---
Date of service: 12/22/20 Time of Service: 22:19 Informed Consent Informed Consent: Induction of Labor and Risk,Benefits,Alternatives Discussed Pelvic Exam Dilation: 4.5 Effacement (%): 90 station: -2 Vaginal Exam Presentation: Vertex Fetus A Heart Rate Baseline: 150 Presentation: Vertex Variability: Moderate (6-25 BPM) Categories: Category I Accelerations: Absent Decelerations: None Assessment and Plan Assessment and plan (1) Encounter for induction of labor: Status: Acute Assessment and plan: IOL at 39 weeks with inadequate analgesia, patient is unwilling to continue to labor without functioning epidural. After extensive discussion of risks/benefits with Dr. Overton, she elects for . Nursing putty and caulking supervisor aware and OR team being called in. Due to potential for general anesthesia, pediatrics being called in as well Objective Abnormal lab results 12/22/20 Range/Units 08:34 WBC 11.08 H (4.4-10.8) 10^3/uL Temp Pulse Resp BP Pulse Ox 36.4 C L 89 20 145/78 H 100 12/22/20 17:06 12/22/20 22:18 12/22/20 08:41 12/22/20 22:18 12/22/20 17:22 Laboratory Results WBC 11.08 10^3/uL (4.4-10.8) H 12/22/20 08:34 RBC 4.23 10^6/uL (3.93-5.22) 12/22/20 08:34 Hgb 12.4 g/dL (11.2-15.7) 12/22/20 08:34 Hct 38.4 % (36.0-46.0) 12/22/20 08:34 MCV 90.8 fL (80-95) 12/22/20 08:34 MCH 29.3 pg (27.0-33.0) 12/22/20 08:34 MCHC 32.3 % (32.0-36.0) 12/22/20 08:34 RDW 13.5 % (11.7-14.6) 12/22/20 08:34 Plt Count 184 10^3/uL (130-400) 12/22/20 08:34 MPV 10.2 fL (8.0-11.0) 12/22/20 08:34 COVID-19 Source Nasal/Nares 10/11/21 10:17 SARS-CoV-2 (PCR) Negative (Negative) 12/21/20 10:17 Patient ABO/Rh O Positive 12/22/20 08:34 Antibody Screen NEGATIVE 12/22/20 08:34 Subjective Interval history since last seen: Patient remains uncomfortable and georgina despite pitocin discontinuation and morphine 10mg. Zabrina is not willing to labor without an epidural. Dr. Overton at bedside and after extensive discussion of risks and benefits, patient elects to proceed with c-sectionl. Results Hemoglobin/Hematocrit: Hgb 12.4 g/dL (11.2-15.7) 12/22/20 08:34 Hct 38.4 % (36.0-46.0) 12/22/20 08:34 Abnormal Lab Findings: Abnormal Labs 12/22/20 08:34 WBC 11.08 H
--- NOTE | 2020-12-22 22:21 | PGE_ITS ---
Date of service: 12/22/20 Time of Service: 22:21 Informed Consent Informed Consent: Induction of Labor and Risk,Benefits,Alternatives Discussed Objective Abnormal lab results 12/22/20 Range/Units 08:34 WBC 11.08 H (4.4-10.8) 10^3/uL Temp Pulse Resp BP Pulse Ox 97.5 F L 89 20 145/78 H 100 12/22/20 17:06 12/22/20 22:18 12/22/20 08:41 12/22/20 22:18 12/22/20 17:22 Laboratory Results WBC 11.08 10^3/uL (4.4-10.8) H 12/22/20 08:34 RBC 4.23 10^6/uL (3.93-5.22) 12/22/20 08:34 Hgb 12.4 g/dL (11.2-15.7) 12/22/20 08:34 Hct 38.4 % (36.0-46.0) 12/22/20 08:34 MCV 90.8 fL (80-95) 12/22/20 08:34 MCH 29.3 pg (27.0-33.0) 12/22/20 08:34 MCHC 32.3 % (32.0-36.0) 12/22/20 08:34 RDW 13.5 % (11.7-14.6) 12/22/20 08:34 Plt Count 184 10^3/uL (130-400) 12/22/20 08:34 MPV 10.2 fL (8.0-11.0) 12/22/20 08:34 COVID-19 Source Nasal/Nares 12/21/20 10:17 SARS-CoV-2 (PCR) Negative (Negative) 12/21/20 10:17 Patient ABO/Rh O Positive 12/22/20 08:34 Antibody Screen NEGATIVE 12/22/20 08:34 Subjective Interval history since last seen: Patient seen and examined, still georgina every 2 to 3 minutes and very uncomfortable. Patient is unable to lay supine de spite narcotic analgesia. heart tones are category 1 tracing with baseline of 150 and moderate variability. Cervical exam reveals cervix that is consistently 4 to 5 cm, 80 to 90% effaced with moderate amount of bloody show. No significant cervical changes despite regular and painful contractions. After conversation with the patient and patient's mother the question arose as to whether she was willing, or able to progress and continue with labor given the amount of discomfort that she has despite pain medication and inability to receive epidural. She is refusing to continue with the process and states that she will not be able to push or move significantly in order to adequately and safely deliver her baby. The risk benefits and alternatives of delivery including infection, bleeding, injury to surrounding organs, risk of anesthesia, risk of thromboembolism were all explained to the patient and full informed consent was obtained. Results Hemoglobin/Hematocrit: Hgb 12.4 g/dL (11.2-15.7) 12/22/20 08:34 Hct 38.4 % (36.0-46.0) 12/22/20 08:34 Abnormal Lab Findings: Abnormal Labs 12/22/20 08:34 WBC 11.08 H
[2020-12-22] MEDS: NALBUPHINE 5 MG in Normal Saline 50 ML 100 MG IVPB (22:23)
[2020-12-22] MEDS: ceFAZolin 2 GM/50 ML BAG IVPB (22:39)
[2020-12-22] MEDS: Sodium Citrate 30 ML CUP PO (22:50)
[2020-12-22] MEDS: AZITHROMYCIN 500 MG in Normal Saline 250 ML 250 MG IVPB (23:37)
--- NOTE | 2020-12-22 23:53 | PLAC_PTH ---
PATIENT: Zabrina Brown LOC: OBS U#:[id number] AGE/SX: 30/F ROOM: OBS.304 RE12/22/[address]: Giles Cedeno : 1990 BED: A DIS: 12/24/2020 SPEC #: [id number] RECD: 12/23/20 12:41 STATUS: ISAIAH REQ #: [id number] FRANNY: 12/22/20 23:[address]: Giles Cedeno DEPT: Surgical Specimen RECD BY: Kathryn Padilla ENTERED: 12/23/20 12:43 SP TYPE: PLAC OTHR DR: Georgette Gordillo Emily Tissues: 1 - PLACENTA (3RD TRIMESTER) Procedures: GROSS AND MICRO LEVEL 5 Comments: [id number]
[2020-12-23] VITALS (9 sets, daily range): BP systolic 129–200; BP diastolic 71–128; PULSE 72–114; RESP 16–24; TEMP 36.3–36.6; O2SAT 98–100
--- NOTE | 2020-12-23 00:12 | PDOC.ANES ---
Date of service: 12/22/20 Time of Service: 16:48 Anesthesia Note Report Anesthesia Note: Paged to OB floor to assess patient following epidural placement 45 minutes prior. Difficult epidural placement, now patient having episode of hypotension, acute nausea, and blurry vision. Patient found to have profound sensory and motor blockage, neosynephrine bolus was administered and epidural was stopped at request of OB provider, Dr. Luna. At bedside with patient for 30 minutes with slow recovery of baseline vision and nausea. Conversation had with Dr. Luna about possibility of catheter migration and will plan to leave infusion off until patient in more active labor pattern and will reassess placement at that time.
[2020-12-23] MEDS: Bupivacaine 0.25% Pres-Free 30 ML VIAL (00:31)
--- NOTE | 2020-12-23 00:53 | W.PM.OBCSECT ---
Date of service: 12/23/20 Time of Service: 00:54 Operative Note Operative Note Delivery Method: Unscheduled STAT: No and Primary [id number]>[id number] Weeks: Yes DATE OF PROCEDURE: 12/23/20 PRE-OP DIAGNOSES: at 39 weeks, chronic hypertension, failed induction POST-OP DIAGNOSES: same Delivery of viable female with moderate meconium stained fluid and port-wine fluid, consistent with abruption PROCEDURE: Primary low transverse section SURGEON: Suzie Overton Clinical Office Technician: Sherman Jones Anesthesia: GETAugusto Estimated blood loss (mL): 800 Pathology: other (Placenta for examination, cord blood gas, cord blood sample) Complications: None Patient was transported to: PACU Patient's condition: stable Indications: Failed induction, patient unable to tolerate labor. Inadequate pain control. Unwilling to push is complete Findings: Delivery of viable female , meconium/port-wine stained fluid consent with mild abruption. Normal tubes, ovaries, uterus Procedure Description: Patient is a 30-year-old female of the [facility] group. She had a scheduled labor induction due to chronic hypertension at 39 weeks station. Her course has been complicated by early marijuana use, history of gastric bypass with significant weight loss, history of discectomy for herniated disc and chronic back pain. She received initially Calvert balloon for cervical ripening and progressed to the point that she is approximately 4 cm dilated. Due to her body habitus and the potential for complicated epidural placement, epidural placement was attempted prior to significantly active labor. The epidural 1 tested because patient have profound hypotension out of proportion to hypotension typically seen with epidural catheterization. The question at that point is the placement of the catheter tip and the safety in its use. The appropriate decision was made per anesthesia and the obstetric team that catheter should not be used for labor epidural. Due to this fact, patient continued to have significant pain with contractions. She initially had Pitocin augmentation and a Pitocin of 6 milliunits. Due to the patient's intolerance of her pain, Pitocin was discontinued, however labor continued. She did receive morphine with no relief. Cervix was maximally dilated to approximately 4 to 5 cm and 90% effaced. Patient throughout the early part of labor did have a scant amount of vaginal bleeding. At the point of dilation to approximately 5 cm, with inadequate pain control, conversation was had with the patient regarding her willingness to continue with labor. She stated that she was not going to continue with labor or willing to push if she could not have better pain control. In light of this, and the risk for complex delivery without good maternal effort risk benefits alternatives of section were explained to the patient in full informed consent was obtained. She was taken the operating suite with an IV running and Calvert catheter that the previously placed along with compression stockings for thromboembolism protection. She was placed in dorsal supine position. heart tones were found to be in the 140s. And a test dose of her epidural catheter was completed with no pain relief. Due to this, decision was made for her to proceed with general anesthesia. Endotracheal intubation was performed for the administration of general anesthesia with ease. At this point a Pfannenstiel skin incision was made carried down to the underlying fascia which was nicked in the midline and extended laterally. The rectus muscles were identified and entered bluntly as was the peritoneum was entered bluntly. The bladder blade was inserted and the vesicouterine peritoneum incised with a scalpel and the bladder pushed down away from the lower uterine segment. A low transverse uterine incision was made with a scalpel and extended bluntly laterally. At the time of rupture of membranes there is noted to be dark meconium and port-wine stained fluid. The vertex delivered atraumatically and shoulders followed with ease. Three-vessel cord was noted clamped x2 and cut and the infant was handed off to the waiting pediatric team. At this point cord blood gases and cord blood sample were both obtained and the placenta was manually expressed from the uterus. The uterus was then exteriorized and cleared of all clot and debris. Uterine incision was closed using 0 Monocryl suture in a running locked fashion and the second layer of an imbricating stitch of 0 Monocryl suture was placed. The uterine incision was inspected and found to be hemostatic. The uterus was then returned to the abdomen and again the uterine incision inspected and found to be hemostatic. Abdomen was irrigated with copious amounts of normal saline and incision inspected again and found to be hemostatic. At this point the fascial incision was closed using 0 Vicryl suture in a running fashion subcutaneous tissue irrigated with copious amount of normal saline and a 50-50 mix of Exparel and quarter percent Marcaine were infiltrated into the subcu space. Subcu space was closed then with 3-0 Vicryl suture in a simple interrupted fashion and the skin edge reapproximated with 4-0 Monocryl suture in a subcuticular fashion and skin affix placed. Patient then awoke from anesthesia without difficulty. Her Calvert catheter was in place draining clear yellow urine. Uterus was expressed of clots and found to be firm, 2 cm below the umbilicus. EBL: 800 mL Complications: None apparent Findings: Delivery of a viable female and placenta with suspected marginal abruption, fluid port-wine stained. Pathology: Placenta for examination [place] Infant Gender: Female
--- NOTE | 2020-12-23 01:10 | W.ANESNEU ---
Epidural/Spinal Cath. Removal Date Performed: 12/23/20 Procedure Time: 00:48 Catheter Removal Type: Epidural Catheter Procedure Location: Operating Room Patient Position: Right Lateral Decubitus Catheter Removal Procedure: Dressing Removed, Catheter Removed without Resistance and Catheter Tip Intact Paresthesia: None Procedure Tolerated: No Complications Procedure Outcome: Successful Performed By: Shanna Huerta
[2020-12-23] MEDS: Ketorolac 30 MG/ML VIAL IVP ×4 (02:00→22:19)
[2020-12-23] MEDS: HYDROmorphone 2 MG/ML VIAL IVP ×2 (05:38→12:02)
--- NOTE | 2020-12-23 08:15 | W.ANESPOSTOP ---
Postoperative Evaluation Date, Time and Location Date Performed: 12/23/20 Time Performed: 08:15 Patient Location: Obstetrics Vital Signs Most Recent Imported Vital Signs: Most Recent Vital Signs Temp Pulse Resp BP Pulse Ox 36.5 C 78 18 142/80 H 98 12/23/20 08:12 12/23/20 08:12 12/23/20 08:12 12/23/20 08:12 12/23/20 08:12 Pain Score Most Recent Pain Score: Most Recent Pain Score Pain Level 3 12/23/20 05:38 Assessment Mental Status: Awake (Alert & Oriented to Patient Baseline) Airway and Respiratory Function: Patent airway with normal (patient baseline) respiratory exam Cardiovascular Function: Hemodynamically Stable Hydration Status: Adequately Hydrated Nausea & Vomiting: No Nausea or Vomiting Pain: Pt. Denies Any Pain Peripheral Nerve Block: Patient did not receive a nerve block
[2020-12-23 08:55] LABS: Abs Immature Grans 0.14 10^3/uL (0.0-0.06); Absolute Neutrophil Count 20.36 10^3/uL (1.2-6.7); Basophils % 0.2; HCT 35.1 % (36.0-46.0); HGB 11.6 g/dL (11.2-15.7); Immature Grans % 0.6; Lymphocytes % 5.6; MCH 30.4 pg (27.0-33.0); MCV 91.9 fL (80-95); MPV 11.2 fL (8.0-11.0); Monocytes % 5.1; Neutrophils % 88.5; Nucleated RBC 0 %; Platelet Count 194 10^3/uL (130-400); RBC 3.82 10^6/uL (3.93-5.22); RDW 13.7 % (11.7-14.6); RDW-SD 46.3 fL
[2020-12-23 09:03] LABS: Absolute Basophil Count 0.05 10^3/uL (0.0-0.2); Absolute Lymphocyte Count 1.29 10^3/uL (1.2-3.4); Absolute Monocyte Count 1.17 10^3/uL (0.1-0.8)
[2020-12-23 09:34] LABS: Diff Comment Diff Reviewed; RBC Morphology Normal
[2020-12-23] MEDS: Sertraline 50 MG TAB 150 MG PO (10:02)
[2020-12-23] MEDS: Docusate Sodium 100 MG CAP PO (10:02)
[2020-12-23] MEDS: Normal Saline Flush 10 ML SYR IVP ×3 (12:03→18:10)
--- NOTE | 2020-12-23 14:14 | W.PM.OBPNV1 ---
Date of service: 12/23/20 Time of Service: 14:14 Assessment and Plan Assessment and plan (1) Status post primary low transverse section: Status: Acute Assessment and plan: Patient is postoperative day #0 status post primary low transverse section for maternal intolerance of labor. She had onset of labor induction due to chronic hypertension at term. She progressed to point that she is proximally 4 to 5 cm dilated, but could not achieve adequate pain relief with Adderall. Patient refused to labor at this point in after lengthy conversation the decision was made in a shared decision-making process to proceed with primary low transverse section. She is doing extremely well after her sleep surgery. She is ambulating, tolerating regular diet and has been up and showered. She is breast-feeding her daughter without difficulty and she'll continue routine postoperative care. (2) History of gastric bypass: Status: Acute (3) Chronic hypertension affecting : Status: Acute Subjective Subjective Interval history: Patient seen today approximately 12 hours status post primary low transverse section. She is doing extremely well. She has been up, showered, her Calvert catheter is out. Vital signs are stable. She is working on breast-feeding without significant issue. She is tolerating regular diet. We discussed routine postoperative care. Patient comments: No complaints, Pain well controlled, Incisional pain and Tolerating diet baby status: Doing well, Nursing well and Strong Bonding Observed [place] feeding status: Exclusively breast feeding Exam Physical Exam Vital signs: Temp Pulse Resp BP Pulse Ox 97.7 F 78 18 142/80 H 98 12/23/20 08:12 12/23/20 08:12 12/23/20 08:12 12/23/20 08:12 12/23/20 08:12 Constitutional Constitutional: no acute distress HEENT Exam HEENT Exam: Normal Neck Exam Neck Exam: Normal Respiratory Exam Respiratory Exam: Normal Cardiovascular Exam Cardiovascular Exam: Normal Abdominal Exam Abdomen: Tender Extremities Exam Extremity Exam: negative Calf Tenderness and Edema Skin Exam Skin Exam: Normal Results Hemoglobin/Hematocrit: Hgb 11.6 g/dL (11.2-15.7) 12/23/20 07:30 Hct 35.1 % (36.0-46.0) L 12/23/20 07:30 Abnormal Lab Findings: Abnormal Labs 12/22/20 12/23/20 08:34 07:30 WBC 11.08 H 23.00 H D RBC 3.82 L Hct 35.1 L MPV 11.2 H Absolute Neutrophils 20.36 H Absolute Monocytes 1.17 H
[2020-12-23] MEDS: Acetaminophen 325 MG TAB 650 MG PO (15:33)
[2020-12-23] MEDS: Metoclopramide 10 MG/2 ML VIAL IVP (18:10)
[2020-12-23] MEDS: oxyCODONE 5 mg/Acetaminophen 325 mg TAB PO (20:23)
[2020-12-24 00:05] VITALS: BP 125/78; PULSE 72; RESP 18; TEMP 36.6
[2020-12-24 03:53] VITALS: BP 153/92; PULSE 72; RESP 18; TEMP 36.6
[2020-12-24 07:20] VITALS: BP 142/88; PULSE 77; RESP 16; TEMP 36.7; O2SAT 98
[2020-12-24] MEDS: Acetaminophen 325 MG TAB 650 MG PO ×2 (07:52→11:45)
[2020-12-24] MEDS: Docusate Sodium 100 MG CAP PO (11:45)
--- NOTE | 2020-12-24 12:21 | W.PM.OBPNV1 ---
Date of service: 12/24/20 Time of Service: 12:21 Assessment and Plan Assessment and plan (1) Status post primary low transverse section: Status: Acute Assessment and plan: Post operative day #2, doing well. D/C home today. Follow up in 1 and 6 weeks (2) History of gastric bypass: Status: Acute (3) Chronic hypertension affecting : Status: Acute Subjective Subjective Interval history: Patient seen and examined, doing well. Good pain control. Ambulating, tolerating a regular diet Patient comments: No complaints, Incisional pain and Tolerating diet baby status: Doing well, Nursing well, Rooming in and Strong Bonding Observed feeding status: Exclusively breast feeding Exam Physical Exam Vital signs: Temp Pulse Resp BP Pulse Ox 98.1 F 77 16 142/88 H 98 12/24/20 07:20 12/24/20 07:20 12/24/20 07:20 12/24/20 07:20 12/24/20 07:20 Constitutional Constitutional: no acute distress HEENT Exam HEENT Exam: Normal Neck Exam Neck Exam: Normal Respiratory Exam Respiratory Exam: Normal Cardiovascular Exam Cardiovascular Exam: Normal Abdominal Exam Abdomen: Tender Comments: incision clean, dry, in tact Fundal Exam Fundus: Below Umbilicus and Firm Extremities Exam Extremity Exam: Normal; negative Calf Tenderness and Edema Neurological Exam Neurological Exam: Normal Psychiatric Exam Psychiatric Exam: Normal Results Hemoglobin/Hematocrit: Hgb 11.6 g/dL (11.2-15.7) 12/23/20 07:30 Hct 35.1 % (36.0-46.0) L 12/23/20 07:30 Abnormal Lab Findings: Abnormal Labs 12/22/20 12/23/20 08:34 07:30 WBC 11.08 H 23.00 H D RBC 3.82 L Hct 35.1 L MPV 11.2 H Absolute Neutrophils 20.36 H Absolute Monocytes 1.17 H
--- NOTE | 2020-12-24 12:39 | W.PM.OBDISCH ---
Date of service: 12/24/20 Time of Service: 12:39 DS: Diagnosis Discharge Diagnosis (1) Status post primary low transverse section: Status: Acute (2) History of gastric bypass: Status: Acute (3) Chronic hypertension affecting : Status: Acute Discharge Plan Disposition Patient Disposition: HOME Condition: Good Discharge Details Reason For Visit: Chronic Hypertension in , S/P 1 C/S Admit Date/Time: 12/22/20 08:11 Admit Provider: Velia Trujillo Attending Provider: Giles Cedeno Primary Care Provider: Georgette Gordillo Hospital Course Hospital Course: Patient was admitted by primary care for labor induction at term. Progressed to 4-5 cm and was unable to receive adequate pain control with epidural. At this point, due to maternal intolerance of labor she underwent a primary section due to maternal intolerance of labor. At section there was suspicion of a milf placental abruption. She had an uncomplicated post operative course and was discharged post operative day #2 Home Meds and New Rx's Prescriptions: New acetaminophen 500 mg tablet 1,000 mg PO QID PRNQty: 90 RF: 1 Continued prenat.vits,gigi,[id number] Tablet 1 tab PO DAILY RF: 0 sertraline 100 mg tablet 100 mg PO DAILY RF: 0 sertraline 50 mg tablet 50 mg PO DAILY RF: 0 omeprazole 20 mg Capsule,Delayed Release(Dr/Ec) RF: 0 albuterol sulfate 90 mcg/actuation Hfa Aerosol Inhaler 2 puff INHALATION Q6H PRN PRNRF: 0 Advair HFA 230-21 mcg/actuation Hfa Aerosol Inhaler 2 puff INHALATION BID RF: 0 Discharge Instructions Additional Instructions: Follow up with Dr. Overton in 1 and 6 weeks Stand Alone Forms: BC Discharge Instruc Activity:: no heavy lifting Equipment/Supplies:: No Equipment Needed Diet:: As Tolerated Discharge Orders Discharge Orders: Discharge Order (Routine); Ordered 12/24/20 Ordered By: Suzie Overton OB:DS Summary Summary Episiotomy Description: None Laceration Description: None Laceration Extension: N/A Contraception Discussed Contraception Discussed: Yes, [place] Gender-Baby A: Female weight: 7 lb 9.872 oz Status at Discharge Functional status at discharge: independent ambulation Overall status at discharge: patient is progressing back to baseline Mental Status: mental status grossly normal Speech and Movement: speech and movement normal Mood: congruent mood Affect: normal affect Exam Physical Exam Vital signs: Temp Pulse Resp BP Pulse Ox 98.1 F 77 16 142/88 H 98 12/24/20 07:20 12/24/20 07:20 12/24/20 07:20 12/24/20 07:20 12/24/20 07:20 Constitutional Comments: See progress noted dated 12/24/20 [facility] Medical History (Updated 12/22/20 @ 21:35 by Suzie Overton DO) Herniated intervertebral disc Surgical History (Updated 12/23/20 @ 14:16 by Suzie Overton DO) History of gastric bypass Status post primary low transverse section Indication was maternal intolerance of labor Social History Smoking/Tobacco Use Status: Never Smoking risk assessment performed?: Yes Alcohol Intake: former Drug use: Daily Substance use type: marijuana Details: has not used since third trimester History History 1 Para 0 Hx # Term Pregnancies Multiple births Hx # Pregnancies Ectopic pregnancies AB induced Hx Number of Living Children AB spontaneous DS: Data Vitals/I&O Vitals and I&O: Vital Signs Temperature 98.1 F 12/24/20 07:20 Pulse 77 12/24/20 07:20 Pulse Rhythm Regular 12/24/20 07:30 Respiratory Rate 16 12/24/20 07:20 Respiratory Depth Normal 12/24/20 07:30 Blood Pressure 142/88 H 12/24/20 07:20 Blood Pressure Mean 106 12/24/20 07:20 Pulse Oximetry 98 12/24/20 07:20 Respiratory End-tidal CO2 31 12/23/20 01:05 Oxygen Delivery Method Room Air 12/23/20 01:05 Oxygen Flow Rate 0 12/22/20 08:41 Pain Level 7 12/23/20 22:19 Intake & Output 12/23/20 12/24/20 12/24/20 23:59 11:59 23:59 Intake Total 600 / 2785 550 / 550 Output Total 400 / 3775 300 / 300 Balance 200 / -990 250 / 250 Intake: Oral 600 / 1600 550 / 550 Output: Urine 400 / 2975 300 / 300 Other: Urine Color Light Mayda Light Mayda
--- NOTE | 2020-12-24 16:48 | W.NBDISCHARG ---
Date of service: 12/24/20 Time of Service: 16:49 DS: Diagnosis Discharge Diagnosis (1) Status post primary low transverse section: Status: Acute (2) History of gastric bypass: Status: Acute (3) Chronic hypertension affecting : Status: Acute Discharge Plan Disposition Patient Disposition: HOME Condition: Good Discharge Details Reason For Visit: Chronic Hypertension in , S/P 1 C/S Admit Date/Time: 12/22/20 08:11 Admit Provider: Velia Trujillo Attending Provider: Giles Cedeno Primary Care Provider: Georgette Gordillo Hospital Course Hospital Course: Patient was admitted by primary care for labor induction at term. Progressed to 4-5 cm and was unable to receive adequate pain control with epidural. At this point, due to maternal intolerance of labor she underwent a primary section due to maternal intolerance of labor. At section there was suspicion of a milf placental abruption. She had an uncomplicated post operative course and was discharged post operative day #2 Home Meds and New Rx's Prescriptions: New acetaminophen 500 mg tablet 1,000 mg PO QID PRNQty: 90 RF: 1 Continued prenat.vits,gigi,[id number] Tablet 1 tab PO DAILY RF: 0 sertraline 100 mg tablet 100 mg PO DAILY RF: 0 sertraline 50 mg tablet 50 mg PO DAILY RF: 0 omeprazole 20 mg Capsule,Delayed Release(Dr/Ec) RF: 0 albuterol sulfate 90 mcg/actuation Hfa Aerosol Inhaler 2 puff INHALATION Q6H PRN PRNRF: 0 Advair HFA 230-21 mcg/actuation Hfa Aerosol Inhaler 2 puff INHALATION BID RF: 0 Discharge Instructions Additional Instructions: Follow up with Dr. Overton in 1 and 6 weeks Stand Alone Forms: BC Discharge Instruc Activity:: no heavy lifting Equipment/Supplies:: No Equipment Needed Diet:: As Tolerated Discharge Orders Discharge Orders: Discharge Order (Routine); Ordered 12/24/20 Ordered By: Suzie Overton Delivery Delivery Info Gestational Age in Weeks/Days: 39 Weeks and 0 Days Gestational Status: Term (39-41.6 wks) Infant Gender: Female Type of Delivery: Section Infant Delivery Date-Baby A: 12/22/20 Infant Delivery Time-Baby A: 23:48 weight: 3455 g Length-Baby A: 46.99 cm Presentation: Cephalic Cephalic Position: Vertex Number of Cord Vessels: 3 Total Time of ROM: [id number] Amniotic Fluid Color: Light Meconium Born En Route: No Shoulder Dystocia: No Vacuum Assisted Delivery: N/A Forcep Assisted Delivery: N/A Delivery Outcome: Liveborn -1 Minute Interval Heart Rate-1 minute: 100 BPM or Greater Respiratory Effort- 1 minute: Spontaneous/Strong Cry Muscle Tone-1 minute: Active Movement Reflex Response-1 minute: Prompt Response Color-1 minute: Bluish Hands or Feet Total Score-1 minute: 9 -5 Minute Interval Heart Rate- 5 minute: 100 BPM or Greater Respiratory Effort-5 minute: Spontaneous/Strong Cry Muscle Tone-5 minute: Active Movement Reflex Response-5 minute: Prompt Response Color-5 minute: [place]/No Cyanosis Total Score- 5 minute: 10 Weight Assessment Weight Change: weight 3455 g Weight 135.624 kg I&O Intake/Output Totals 24 Hours: 12/23/20 12/23/20 12/24/20 12/24/20 11:59 23:59 11:59 23:59 Intake Total 2185 / 2785 600 / 2785 550 / 550 Output Total 3075 / 3775 400 / 3775 300 / 300 Balance -890 / -990 200 / -990 250 / 250 Intake: IV 1185 / 1185 Oral 1000 / 1600 600 / 1600 550 / 550 Output: Urine 2275 / 2975 400 / 2975 300 / 300 Estimated Blood Loss 800 / 800 Other: Urine Color Yellow Light Mayda Light Mayda Urine Appearance Clear Discharge Data/Results Discharge Weight Weight: 135.624 kg Last Vital Signs Temp 36.7 C 12/24/20 07:20 Pulse 77 12/24/20 07:20 Resp 16 12/24/20 07:20 BP 142/88 H 12/24/20 07:20 Pulse Ox 98 12/24/20 07:20 Visit Medications Visit Medications: Generic Name Dose Route Start Last Admin Trade Name Freq PRN Reason Stop Dose Admin Acetaminophen 650 mg 12/23/20 00:50 12/24/20 11:45 Acetaminophen 325 Mg Tab PO 650 mg Q4H PRN PRN Administration Docusate Sodium 100 mg 12/23/20 00:50 12/24/20 11:45 Docusate Sodium 100 Mg Cap PO 100 mg BID PRN PRN Administration Fentanyl/Ropivacaine 200 ml 12/22/20 16:30 12/22/20 16:50 Fentanyl/Ropivacaine 2 Mcg/Ml And 0.1% 200 Ml Cadd Cassette EP 200 ml DIRECTED KEVIN Administration Hydromorphone HCl 2 mg 12/23/20 00:50 12/23/20 12:02 Hydromorphone 2 Mg/Ml Vial IVP 2 mg Q4H PRN PRN Administration Oxytocin/Sodium Chloride 30 unit in 500 mls @ 2 mls/hr 12/22/20 13:15 12/22/20 19:30 Pitocin/Normal Saline IV 6 milliunits/min INFUSION KEVIN 6 mls/hr Titration Protocol 2 MILLIUNITS/MIN Ringer's Solution 1,000 mls @ 125 mls/hr 12/22/20 14:15 12/22/20 16:55 IV 500 mls/hr INFUSION KEVIN Infusion Metoclopramide HCl 10 mg 12/23/20 00:50 12/23/20 18:10 Metoclopramide 10 Mg/2 Ml Vial IVP 10 mg Q6H PRN PRN Administration Oxycodone/Acetaminophen 0 tab 12/23/20 00:50 12/23/20 20:23 Oxycodone 5 Mg/Acetaminophen 325 Mg Tab PO 1 tab Q4H PRN PRN Administration Sertraline HCl 150 mg 12/23/20 08:30 12/23/20 10:02 Sertraline 50 Mg Tab PO 150 mg DAILY KEVIN Administration Sodium Chloride 0 ml 12/22/20 08:11 12/23/20 18:10 Normal Saline Flush 10 Ml Syr IVP 10 ml PRN PRN Administration Discontinued Medications Generic Name Dose Route Start Last Admin Trade Name Freq PRN Reason Stop Dose Admin Citric Acid/Sodium Citrate 30 ml 12/22/20 23:00 12/22/20 22:50 Sodium Citrate 30 Ml Cup PO 30 ml PREOP KEVIN Administration Nalbuphine HCl 5 mg/ Sodium 50.5 mls @ 100 mls/hr 12/22/20 22:13 12/22/20 22:23 Chloride IVPB 12/22/20 22:43 100 mls/hr NOW ONE Administration Cefazolin Sodium/Dextrose 2 gm in 50 mls @ 100 mls/hr 12/22/20 22:30 12/22/20 23:15 Ancef Duplex IVPB Infused PREOP KEVIN Infusion Azithromycin 500 mg/ Sodium 250 mls @ 250 mls/hr 12/22/20 22:30 12/23/20 00:27 Chloride IVPB Infused PREOP KEVIN Infusion Ketorolac Tromethamine 30 mg 12/23/20 02:00 12/23/20 10:01 Ketorolac 30 Mg/Ml Vial IVP 12/23/20 20:01 30 mg Q6H KEVIN Administration Ketorolac Tromethamine 30 mg 12/23/20 16:00 12/23/20 22:19 Ketorolac 30 Mg/Ml Vial IVP 12/23/20 22:01 30 mg Q6H KEVIN Administration Measles/Mumps/Rubella Vaccine Live 0.5 ml 12/23/20 00:50 12/23/20 17:47 Measles, Mumps, & Rubella Vaccine 0.5 Ml Vial SC 12/23/20 00:51 Not Given .ONCE ONE Misoprostol 25 mcg 12/22/20 09:00 12/22/20 17:56 Misoprostol 25 Mcg Tab VG Not Given Q4H COUNT INCLUDES THE [facility] Morphine Sulfate 10 mg 12/22/20 20:39 12/22/20 21:04 Morphine 10 Mg/Ml Vial IM 12/22/20 20:40 10 mg NOW ONE Administration Ondansetron HCl 4 mg 12/22/20 16:44 12/22/20 16:59 Ondansetron 4 Mg/2 Ml Vial IVP 12/22/20 16:45 4 mg NOW ONE Administration Maternal History Maternal Information Medication Assisted Treatment Program: N/A Maternal Medical History Maternal History Summary Note: Allergies to: Bees, Percocet, Codine Sulfate, Lactose, Horse Flies, Vicodin, Adhesive tape Hx of: Gall Bladder Removal- 02/21/11 Gastric Bypass Surgery- 01/13/10 Disectomy- 08/2007 Tonsillectomy and Adenoidectomy- 1995 Diabetes: POSITIVE FOR Hypertension: POSITIVE FOR Heart disease: NEGATIVE FOR Auto-immune disorder: NEGATIVE FOR Kidney disease/UTI: NEGATIVE FOR Neurologic/epilepsy: NEGATIVE FOR Psychiatric: NEGATIVE FOR Depression/ depression: POSITIVE FOR Hepatitis/liver disease: POSITIVE FOR Varicosities/phlebitis: NEGATIVE FOR Thyroid dysfunction: NEGATIVE FOR Trauma/domestic violence: NEGATIVE FOR History of blood transfusions: POSITIVE FOR Pulmonary (e.g.,TB,Asthma): POSITIVE FOR Seasonal allergies: NEGATIVE FOR Drug/latex allergies/reactions: POSITIVE FOR Breast: NEGATIVE FOR Deputy Jailer surgery: NEGATIVE FOR Operations/hospitalizations: POSITIVE FOR Anesthetic complications: NEGATIVE FOR History of abnormal pap: NEGATIVE FOR Uterine anomaly/richard: NEGATIVE FOR Infertility: NEGATIVE FOR Anti-retroviral treatment: NEGATIVE FOR History Comments: Cocaine use 2015 Chronic back pain fatty liver w/abnormal liver functions depression/anxiety diabetes/hypertention gastric surgery anemia Genetic History Patients age 35 years or older as of HAM: No Thalassemia (Swiss, Salvadorean, Mediterranean, or Black: No Congenital Heart Defect: No Neural Tube Defect (Meningomyelocele, Spina Bifida, or Ancen: No Down Syndrome: No Oz-Sachs (Ashkenazi Baptist, Cajun, Israeli Charles Mix): No Rosalino Disease (Ashkenazi Baptist): No Familial Dysautonomia (Ashkenazi Baptist): No Sickle Cell Disease or Trait (): No Muscular Dystrophy: No Cystic Fibrosis: No Henry's Chorea: No Mental Retardation/Autism: No Other inherited genetic or chromosomal disorder: No Maternal Metabolic Disorder (EG,TYPE 1 Diabetes, PKU): Yes Patient or baby's father had a child with defects: No Recurrent loss or a stillbirth: No Medications (including supplements, vitamins, herbs or o: Yes (Marijuana use) [facility] Medical History (Updated 12/22/20 @ 21:35 by Suzie Overton DO) Herniated intervertebral disc Surgical History (Updated 12/23/20 @ 14:16 by Suzie Overton DO) History of gastric bypass Status post primary low transverse section Indication was maternal intolerance of labor Social History Smoking/Tobacco Use Status: Never Smoking risk assessment performed?: Yes Alcohol Intake: former Drug use: Daily Substance use type: marijuana Details: has not used since third trimester History History 1 Para 0 Hx # Term Pregnancies Multiple births Hx # Pregnancies Ectopic pregnancies AB induced Hx Number of Living Children AB spontaneous
== END 2020-12-24 17:30 | disposition home or self-care (01) | DRG 786 ==
PROVIDERS: Obstetrics & Gynecology; Admitting Provider Family Medicine; PCP Nurse Practitioner Family; Visit Provider Family Medicine
PROC: (CPT 59514; principal; 2020-12-22 23:20)
DX: O10.913 Unspecified pre-existing hypertension complicating pregnancy, third trimester (principal); O45.93 Premature separation of placenta, unspecified, third trimester; Z37.0 Single live birth; Z3A.39 39 weeks gestation of pregnancy; O99.344 Other mental disorders complicating childbirth; F32.A Depression, unspecified; O24.420 Gestational diabetes mellitus in childbirth, diet controlled; O99.02 Anemia complicating childbirth; D50.8 Other iron deficiency anemias; O77.1 Fetal stress in labor or delivery due to drug administration; O77.0 Labor and delivery complicated by meconium in amniotic fluid; O99.844 Bariatric surgery status complicating childbirth; T88.59XA Other complications of anesthesia, initial encounter; I95.2 Hypotension due to drugs; T41.3X5A Adverse effect of local anesthetics, initial encounter; O75.89 Other specified complications of labor and delivery
CPT/HCPCS: 59514; 36415; 82803; 85027; 86850; 86900; 86901; 87635; 59200; 85025; 88307; J0456; J0690; J1100; J1885; J2001; J2270; J2370; J2405; J2704; J2765; J3010; J3490

== ENCOUNTER 2021-02-09 02:06 | Outpatient (RCR) | payer MEDICAID, SELFPAY ==
[2021-01-19] MEDS: Normal Saline Flush 10 ML SYR IVP (13:51)
[2021-01-19] MEDS: IRON SUCROSE COMPLEX 200 MG in Normal Saline 100 ML 440 MG IVPB (13:51)
[2021-01-19 13:52] LABS: Abs Immature Grans 0.02 10^3/uL (0.0-0.06); Absolute Basophil Count 0.05 10^3/uL (0.0-0.2); Absolute Lymphocyte Count 2.07 10^3/uL (1.2-3.4); Absolute Monocyte Count 0.43 10^3/uL (0.1-0.8); Basophils % 0.8; Eosinophils % 4.6; HCT 30.6 % (36.0-46.0); HGB 9.4 g/dL (11.2-15.7); Immature Grans % 0.3; Lymphocytes % 31.5; MCH 25.5 pg (27.0-33.0); MCHC 30.7 % (32.0-36.0); MCV 82.9 fL (80-95); MPV 9.9 fL (8.0-11.0); Monocytes % 6.5; Neutrophils % 56.3; Nucleated RBC 0 %; Platelet Count 205 10^3/uL (130-400); RBC 3.69 10^6/uL (3.93-5.22); RDW-SD 51.1 fL; WBC 6.57 10^3/uL (4.4-10.8)
[2021-01-26] MEDS: IRON SUCROSE COMPLEX 200 MG in Normal Saline 100 ML 440 MG IVPB (14:27)
[2021-01-26 14:29] LABS: Abs Immature Grans 0.04 10^3/uL (0.0-0.06); Absolute Basophil Count 0.05 10^3/uL (0.0-0.2); Absolute Eosinophil Count 0.24 10^3/uL (0.0-0.7); Absolute Lymphocyte Count 1.94 10^3/uL (1.2-3.4); Absolute Monocyte Count 0.62 10^3/uL (0.1-0.8); Absolute Neutrophil Count 6.39 10^3/uL (1.2-6.7); Basophils % 0.5; Eosinophils % 2.6; HGB 9.4 g/dL (11.2-15.7); Immature Grans % 0.4; Lymphocytes % 20.9; MCH 24.7 pg (27.0-33.0); MCHC 29.4 % (32.0-36.0); MPV 10.1 fL (8.0-11.0); Monocytes % 6.7; Neutrophils % 68.9; Nucleated RBC 0 %; Platelet Count 332 10^3/uL (130-400); RBC 3.81 10^6/uL (3.93-5.22); RDW 18.6 % (11.7-14.6); RDW-SD 56.3 fL; WBC 9.28 10^3/uL (4.4-10.8)
[2021-01-26] MEDS: Normal Saline Flush 10 ML SYR IVP (15:31)
[2021-02-02 13:11] LABS: Abs Immature Grans 0.04 10^3/uL (0.0-0.06); Absolute Basophil Count 0.06 10^3/uL (0.0-0.2); Absolute Lymphocyte Count 2.27 10^3/uL (1.2-3.4); Absolute Monocyte Count 0.58 10^3/uL (0.1-0.8); Absolute Neutrophil Count 7.46 10^3/uL (1.2-6.7); Basophils % 0.6; Eosinophils % 1.9; HCT 35.6 % (36.0-46.0); HGB 10.2 g/dL (11.2-15.7); Immature Grans % 0.4; Lymphocytes % 21.4; MCH 24.4 pg (27.0-33.0); MCHC 28.7 % (32.0-36.0); MCV 85.2 fL (80-95); MPV 9.2 fL (8.0-11.0); Monocytes % 5.5; Neutrophils % 70.2; Nucleated RBC 0 %; RBC 4.18 10^6/uL (3.93-5.22); RDW 19.4 % (11.7-14.6); RDW-SD 60.3 fL; WBC 10.61 10^3/uL (4.4-10.8)
[2021-02-02] MEDS: Normal Saline Flush 10 ML SYR IVP (13:17)
[2021-02-02] MEDS: IRON SUCROSE COMPLEX 200 MG in Normal Saline 100 ML 440 MG IVPB (13:25)
[2021-02-02 13:32] LABS: Diff Comment Diff Reviewed; Hypochromasia 2+
[2021-02-02 13:33] LABS: Polychromasia Present
[2021-02-02 13:34] LABS: Poikilocytes 2+
[2021-02-02 13:36] LABS: Platelet Count 813 10^3/uL (130-400)
[2021-02-09] MEDS: Normal Saline Flush 10 ML SYR IVP (13:05)
[2021-02-09] MEDS: IRON SUCROSE COMPLEX 200 MG in Normal Saline 100 ML 440 MG IVPB (13:05)
[2021-02-09 13:23] LABS: HCT 36.4 % (36.0-46.0); HGB 10.6 g/dL (11.2-15.7); MCH 24.2 pg (27.0-33.0); MCHC 29.1 % (32.0-36.0); MCV 83.1 fL (80-95); MPV 9.3 fL (8.0-11.0); Platelet Count 499 10^3/uL (130-400); RBC 4.38 10^6/uL (3.93-5.22); RDW 19.3 % (11.7-14.6); RDW-SD 58.3 fL; WBC 8.27 10^3/uL (4.4-10.8)
== END 2021-02-09 23:59 | disposition home or self-care (01) ==
LOC: INF 02:06
PROVIDERS: PCP Nurse Practitioner Family; Referring Provider Nurse Practitioner Adult Health; Visit Provider Internal Medicine
DX: D50.9 Iron deficiency anemia, unspecified (principal)
CPT/HCPCS: 36415; 85027; 86850; 86900; 86901; 96365; 85025; J1756

== ENCOUNTER 2021-11-08 04:06 | Outpatient (CLI) | payer MEDICAID, SELFPAY ==
[2021-11-08 10:05] LABS: Abs Immature Grans 0.01 10^3/uL (0.0-0.06); Absolute Eosinophil Count 0.98 10^3/uL (0.0-0.7); Absolute Lymphocyte Count 2.14 10^3/uL (1.2-3.4); Absolute Monocyte Count 0.59 10^3/uL (0.1-0.8); Absolute Neutrophil Count 4.18 10^3/uL (1.2-6.7); Basophils % 1.3; Eosinophils % 12.3; HCT 36.9 % (36.0-46.0); HGB 11.2 g/dL (11.2-15.7); Immature Grans % 0.1; Lymphocytes % 26.8; MCH 23.9 pg (27.0-33.0); MCHC 30.4 % (32.0-36.0); MCV 79 fL (80-95); MPV 10.5 fL (8.0-11.0); Monocytes % 7.4; Neutrophils % 52.1; Platelet Count 328 10^3/uL (130-400); RBC 4.68 10^6/uL (3.93-5.22); RDW 15.9 % (11.7-14.6)
[2021-11-10 11:12] LABS: COVID-19 RT-PCR UVMMC Result Negative (Negative)
== END 2021-11-08 04:07 | disposition home or self-care (01) ==
LOC: LBO 04:06
PROVIDERS: PCP Nurse Practitioner Family; Visit Provider Obstetrics & Gynecology
DX: Z30.09 Encounter for other general counseling and advice on contraception (principal); Z98.84 Bariatric surgery status; Z20.822 Contact with and (suspected) exposure to COVID-19; Z01.818 Encounter for other preprocedural examination; Z01.812 Encounter for preprocedural laboratory examination
CPT/HCPCS: 36415; 86850; 86900; 86901; 87635; U0003; 85025

== ENCOUNTER 2021-11-10 10:55 | Day surgery (SDC) | payer MEDICAID, SELFPAY ==
[2021-11-10] VITALS (7 sets, daily range): BP systolic 115–160; BP diastolic 72–92; PULSE 65–81; RESP 16–27; TEMP 36.1–36.7; O2SAT 96–100; BMI 35.6
[2021-11-10 11:07] LABS: Source Nasal/Nares
[2021-11-10 11:44] LABS: COVID-19 PCR Negative (Negative)
--- NOTE | 2021-11-10 11:57 | ANES.PREOP_ITS ---
General Info Date of Service Date Performed: 11/10/21 Height: 6 ft 4 in Weight: 133 kg Body Mass Index (BMI): 35.6 Surgical Procedure: Operation Date: 11/10/21 13:25 Proposed Procedure Side Surgeon p Salpingectomy Laparoscopic Bilateral Suzie Overton DO Meds Allergies and Home Medications Allergies Allergy/AdvReac Type Severity Reaction Status Date / Time bee venom protein (honey bee) Allergy Severe Swelling/Ed Unverified 11/10/21 11:16 jonathan adhesive tape Allergy Intermediate Skin Rash Unverified 11/10/21 11:16 codeine Allergy Intermediate Hives Unverified 11/10/21 11:16 acetaminophen [From Percocet] AdvReac Intermediate Nausea Unverified 11/10/21 11:16 hydrocodone [From Vicodin] AdvReac Intermediate Nausea Unverified 11/10/21 11:16 lactose AdvReac Intermediate Other (See Unverified 11/10/21 11:16 Comment) oxycodone [From Percocet] AdvReac Intermediate Nausea Unverified 11/10/21 11:16 Home Medication Medication Instructions Recorded sertraline 100 mg tablet 100 mg PO DAILY 11/26/20 sertraline 50 mg tablet 50 mg PO DAILY 11/26/20 albuterol sulfate 90 mcg/actuation 2 puff inhalation Q6H PRN PRN 12/22/20 aerosol inhaler fluticasone propionate 230 2 puff inhalation BID 12/22/20 mcg-salmeterol 21 mcg/actuation HFA inhaler (Advair HFA) omeprazole 20 mg capsule,delayed 40 mg PO DAILY 12/22/20 release acetaminophen 500 mg tablet 1,000 mg PO QID PRN #90 tabs 12/24/20 cholecalciferol (vitamin D3) 1,250 1,250 mcg PO QWEEK 02/02/21 mcg (50,000 unit) capsule famotidine 40 mg tablet 40 mg PO DAILY 02/02/21 folic acid 1 mg tablet 1 mg PO DAILY 11/10/21 lurasidone 20 mg tablet (Latuda) 1 tab PO HS 11/10/21 Current Visit Medications: Current Medications Generic Name Dose Route Start Last Admin Trade Name Freq PRN Reason Stop Dose Admin Ringer's Solution 1,000 mls @ 125 mls/hr 11/10/21 06:00 IV 12/09/21 23:59 INFUSION KEVIN IV Miscellaneous Supplies 1 each 11/10/21 06:00 Iv Access IV 12/09/21 23:59 DIRECTED KEVIN Sodium Chloride 0 ml 11/10/21 06:00 Normal Saline Flush 10 Ml Syr IV 12/09/21 23:59 PRN PRN Sodium Chloride 0 ml 11/10/21 06:00 Normal Saline 10 Ml Vial IJ 12/09/21 23:59 DIRECTED PRN Sterile Water 0 ml 11/10/21 06:00 Water,Injection,Sterile 10 Ml Vial IJ 12/09/21 23:59 DIRECTED PRN PFSH Active Problems Active Problems: Problem Status Onset Code Iron deficiency E61.1 History of gastric bypass Z98.84 Sterilization consult Z30.09 Medical History Medical History (Updated 11/10/21 @ 11:43 by Patti Gutierrez) GI bleed Herniated intervertebral disc History of asthma History of depressed bipolar disorder Medical History Comments:: Asthma - took IH today. Pt currently menstrating. Daily marijauna. Reports that she has tolerated dilaudid in past if needed for postop pain. Surgical History Surgical History Hx of cholecystectomy Status post primary low transverse section Indication was maternal intolerance of labor Tobacco Smoking/Tobacco Use Status: Never Alcohol Alcohol Intake: former Substance Use Substance use: Daily Substance use type: marijuana Prental History History 1 Para 1 Hx # Term Pregnancies 1 Multiple births Hx # Pregnancies Ectopic pregnancies AB induced Hx Number of Living Children 1 AB spontaneous Past Pregnancies Del. Date GA/Weeks # Preg Succ Route Wgt Sex Labor Lgth Anesth esia Location [facility] 12/23/20 39 No 3452.972 g Female K J Vital Signs and Lab Results Vital Signs Most Recent Vital Signs in EMR: Most Recent Vital Signs Temp Pulse Resp BP Pulse Ox 36.4 C L 76 16 115/72 99 11/10/21 11:31 11/10/21 11:31 11/10/21 11:31 11/10/21 11:31 11/10/21 11:31 Point of Care Results Point of Care Results: POC- Test(urine) Negative 11/10/21 11:51 Lab Results Blood Type / Crossmatch: Patient ABO/Rh O Positive 11/08/21 Antibody Screen NEGATIVE 11/08/21 Complete Blood Count: White Blood Count 8.00 10^3/uL (4.4-10.8) 11/08/21 10:01 Red Blood Count 4.68 10^6/uL (3.93-5.22) 11/08/21 10:01 Hemoglobin 11.2 g/dL (11.2-15.7) 11/08/21 10:01 Hematocrit 36.9 % (36.0-46.0) 11/08/21 10:01 Platelet Count 328 10^3/uL (130-400) 11/08/21 10:01 Complete Metabolic Panel: No Data to Display Liver Function Panel: No Data to Display Coagulation Panel: No Data to Display Cardiac Panel: No Data to Display Arterial Blood Gas: No Data to Display Venous Blood Gas: No Data to Display Pancreas Panel: No Data to Display Thyroid Panel: No Data to Display Infectious Disease: Coronavirus (COVID-19)(PCR) Negative (Negative) 11/10/21 11:02 Coronavirus 2019 Source Nasal/Nares 11/10/21 11:02 Blood Cultures: No Data to Display Toxicology Panel: No Data to Display Panel: No Data to Display Anesthesia Assessment and Plan Anesthesia History Personal History: No History of Anesthesia Complications Family History: No Family History of Anesthesia Complications Exercise Tolerance Exercise Tolerance: Metabolic Equivalents>4 Pertinent Negatives Pertinent Negatives: No Symptoms of GERD and No Major Cardiovascular Symptoms or Complaints Cardiac & Pulmonary Exam Cardiac Exam: Normal S1/S2 Heart Sounds Pulmonary Exam: Clear Bilateral Breath Sounds Implantable Cardiac Device Does patient have a Pacemaker or an ICD?: No Airway Exam Known Difficult Airway: No Mallampati Class: 1 Mouth Opening: Normal (> 3cm) Thyromental Distance: Greater than 3 cm Neck Range of Motion: Full ROM Neck Circumference: Normal Teeth Condition: Normal Dentition and Edentulous (11 Upper teeth removed a few days ago) ASA Classification ASA Score: ASA 2 Emergency Case?: No NPO Status NPO Status: NPO Clears >2 hours, Solids >8 hours Status Status: Negative HCG Anesthesia Plan Resuscitation Status: Full Code Anesthesia Technique: General Anesthesia Airway Planned: Endotracheal Tube Monitors Used: Standard Monitors Preoperative Comments:: 31 yo female for lap salping. Sig PMHx: asthma, never smoker, daily cannabis, GERD. Previous Anes: GA section glide 3 grade 1.
[2021-11-10] MEDS: Lactated Ringers 1,000 ML 125 ML IV (12:10)
--- NOTE | 2021-11-10 12:45 | ANES.PREOP_ITS ---
General Info Date of Service Date Performed: 11/10/21 Height: 6 ft 4 in Weight: 133 kg Body Mass Index (BMI): 35.6 Surgical Procedure: Operation Date: 11/10/21 13:25 Proposed Procedure Side Surgeon p Salpingectomy Laparoscopic Bilateral Suzie Overton DO Meds Allergies and Home Medications Allergies Allergy/AdvReac Type Severity Reaction Status Date / Time bee venom protein (honey bee) Allergy Severe Swelling/Ed Unverified 11/10/21 11:16 jonathan adhesive tape Allergy Intermediate Skin Rash Unverified 11/10/21 11:16 codeine Allergy Intermediate Hives Unverified 11/10/21 11:16 acetaminophen [From Percocet] AdvReac Intermediate Nausea Unverified 11/10/21 11:16 hydrocodone [From Vicodin] AdvReac Intermediate Nausea Unverified 11/10/21 11:16 lactose AdvReac Intermediate Other (See Unverified 11/10/21 11:16 Comment) oxycodone [From Percocet] AdvReac Intermediate Nausea Unverified 11/10/21 11:16 Home Medication Medication Instructions Recorded sertraline 100 mg tablet 100 mg PO DAILY 11/26/20 sertraline 50 mg tablet 50 mg PO DAILY 11/26/20 albuterol sulfate 90 mcg/actuation 2 puff inhalation Q6H PRN PRN 12/22/20 aerosol inhaler fluticasone propionate 230 2 puff inhalation BID 12/22/20 mcg-salmeterol 21 mcg/actuation HFA inhaler (Advair HFA) omeprazole 20 mg capsule,delayed 40 mg PO DAILY 12/22/20 release acetaminophen 500 mg tablet 1,000 mg PO QID PRN #90 tabs 12/24/20 cholecalciferol (vitamin D3) 1,250 1,250 mcg PO QWEEK 02/02/21 mcg (50,000 unit) capsule famotidine 40 mg tablet 40 mg PO DAILY 02/02/21 folic acid 1 mg tablet 1 mg PO DAILY 11/10/21 lurasidone 20 mg tablet (Latuda) 1 tab PO HS 11/10/21 Current Visit Medications: Current Medications Generic Name Dose Route Start Last Admin Trade Name Freq PRN Reason Stop Dose Admin Ringer's Solution 1,000 mls @ 125 mls/hr 11/10/21 06:00 11/10/21 12:10 IV 12/09/21 23:59 125 mls/hr INFUSION KEVIN Administration IV Miscellaneous Supplies 1 each 11/10/21 06:00 Iv Access IV 12/09/21 23:59 DIRECTED KEVIN Sodium Chloride 0 ml 11/10/21 06:00 Normal Saline Flush 10 Ml Syr IV 12/09/21 23:59 PRN PRN Sodium Chloride 0 ml 11/10/21 06:00 Normal Saline 10 Ml Vial IJ 12/09/21 23:59 DIRECTED PRN Sterile Water 0 ml 11/10/21 06:00 Water,Injection,Sterile 10 Ml Vial IJ 12/09/21 23:59 DIRECTED PRN PFSH Active Problems Active Problems: Problem Status Onset Code Iron deficiency E61.1 History of gastric bypass Z98.84 Sterilization consult Z30.09 Medical History Medical History (Updated 11/10/21 @ 11:43 by Patti Gutierrez) GI bleed Herniated intervertebral disc History of asthma History of depressed bipolar disorder Medical History Comments:: Asthma - took IH today. Pt currently menstrating. Daily marijauna. Reports that she has tolerated dilaudid in past if needed for postop pain. Surgical History Surgical History Hx of cholecystectomy Status post primary low transverse section Indication was maternal intolerance of labor Tobacco Smoking/Tobacco Use Status: Never Alcohol Alcohol Intake: former Substance Use Substance use: Daily Substance use type: marijuana Prental History History 1 Para 1 Hx # Term Pregnancies 1 Multiple births Hx # Pregnancies Ectopic pregnancies AB induced Hx Number of Living Children 1 AB spontaneous Past Pregnancies Del. Date GA/Weeks # Preg Succ Route Wgt Sex Labor Lgth Anesth esia Location [facility] 12/23/20 39 No 3452.972 g Female K J Vital Signs and Lab Results Vital Signs Most Recent Vital Signs in EMR: Most Recent Vital Signs Temp Pulse Resp BP Pulse Ox 36.4 C L 76 16 115/72 99 11/10/21 11:31 11/10/21 11:31 11/10/21 11:31 11/10/21 11:31 11/10/21 11:31 Point of Care Results Point of Care Results: POC- Test(urine) Negative 11/10/21 11:51 Lab Results Blood Type / Crossmatch: Patient ABO/Rh O Positive 11/08/21 Antibody Screen NEGATIVE 11/08/21 Complete Blood Count: White Blood Count 8.00 10^3/uL (4.4-10.8) 11/08/21 10:01 Red Blood Count 4.68 10^6/uL (3.93-5.22) 11/08/21 10:01 Hemoglobin 11.2 g/dL (11.2-15.7) 11/08/21 10:01 Hematocrit 36.9 % (36.0-46.0) 11/08/21 10:01 Platelet Count 328 10^3/uL (130-400) 11/08/21 10:01 Complete Metabolic Panel: No Data to Display Liver Function Panel: No Data to Display Coagulation Panel: 2 No Data to Display Cardiac Panel: No Data to Display Arterial Blood Gas: No Data to Display Venous Blood Gas: No Data to Display Pancreas Panel: No Data to Display Thyroid Panel: No Data to Display Infectious Disease: Coronavirus (COVID-19)(PCR) Negative (Negative) 11/10/21 11:02 Coronavirus 2019 Source Nasal/Nares 11/10/21 11:02 Blood Cultures: No Data to Display Toxicology Panel: No Data to Display Panel: No Data to Display Anesthesia Assessment and Plan Anesthesia History Personal History: No History of Anesthesia Complications Family History: No Family History of Anesthesia Complications Exercise Tolerance Exercise Tolerance: Metabolic Equivalents>4 Implantable Cardiac Device Does patient have a Pacemaker or an ICD?: No Airway Exam Known Difficult Airway: No Mallampati Class: 1 Mouth Opening: Normal (> 3cm) Thyromental Distance: Greater than 3 cm Neck Range of Motion: Full ROM Neck Circumference: Normal Teeth Condition: Normal Dentition
[2021-11-10] MEDS: Bupivacaine 0.25% Pres-Free W/EPI 30 ML VIAL (15:06)
--- NOTE | 2021-11-10 15:32 | FALL_PTH ---
PATIENT: Zabrina Brown LOC: [facility] U#:[id number] AGE/SX: 31/F ROOM: RE11/10/[address]: Suzie Overton DO : 1990 BED: DIS: 11/10/2021 SPEC #: [id number] RECD: 11/10/21 17:46 STATUS: ISAIAH RE #: [id number] FRANNY: 11/10/21 15:[address]: Suzie Overton DEPT: Surgical Specimen RECD BY: Kathryn Padilla ENTERED: 11/10/21 17:47 SP TYPE: Fall OTHR DR: Georgette Gordillo Tissues: 1 - FALLOPIAN TUBE (STERILIZATION) 2 - FALLOPIAN TUBE (STERILIZATION) Procedures: GROSS AND MICRO LEVEL 2 Comments: [id number]
--- NOTE | 2021-11-10 16:12 | W.PM.OP ---
Date of service: 11/10/21 Time of Service: 16:12 Operative Note Operative Note DATE OF PROCEDURE: 11/10/21 PRE-OP DIAGNOSIS: Undesired Fertility POST-OP DIAGNOSIS: same PROCEDURE: Bilateral Laproscopic Salpingectomy SURGEON: Suzie Overton ASSISTING SURGEON: Sandra Steve ANESTHESIA TYPE: Local By Surgeon and General LMA/ETT Refer to Anesthesia Record ESTIMATED BLOOD LOSS: 10 PATHOLOGY: other (1. Right Fallopian Tube 2. Left Fallopian tube) Indications: Undesired Fertility Findings: Normal Tubes, ovaries, uterus. No intra-abdominal pathology Procedure Description: After full informed consent was obtained, patient was taken the operating suite with an IV running. She is placed in the supine position and endotracheal intubation performed for the administration of general anesthesia with ease. She is then placed in the modified dorsolithotomy position and prepped and draped in usual sterile fashion. Exam under anesthesia revealed a uterus that was midline and mobile. Speculum was inserted into the posterior vaginal vault after her bladder was drained of urine. Single-tooth tenaculum used to grasp the anterior lip of the cervix and a Deep [place]ines[place]ka uterine manipulator placed within. Tenaculum and speculum were both removed and attention was turned to the abdomen. At this point quarter percent Marcaine was used to infiltrate the umbilical area. The anterior abdominal wall was elevated and a small infraumbilical skin incision was made. Initial attempts at using a varies needle for creation of a pneumoperitoneum were unsuccessful due to high pressures. Due to the fact that she has had numerous previous abdominal surgeries decision was made to do an open laparoscopy. The fascia was identified elevated and entered sharply. This allowed exposure into the abdominal cavity. The 12 mm sleeve and trocar was directly inserted and pneumoperitoneum created with a maximum pressure of 15 mmHg. There was no evidence of intraperitoneal adhesions, there was nothing traumatic and no other intra-abdominal or pelvic pathology was noted. At this point a second and third right and left lower tract quadrant trocar site were placed after infiltration with quarter percent Marcaine under direct visualization. The uterus was then elevated allowing exposure of the left fallopian tube which was elevated, cautery transected, and ligated. The fallopian tube was removed through the port. Similar procedure was carried out on the right fallopian tube. Inspection of the pedicles was undertaken and the pedicles were noted to be hemostatic. At this point the procedure was terminated. CO2 gas released and all trochars removed from the abdomen. The fascial incision was closed using 0 Vicryl suture in a simple interrupted fashion. Skin edges were reapproximated with 4-0 undyed Monocryl and Steri-Strips and sterile dressings were placed. Hulka manipulator was removed from the cervix and the patient was returned to the dorsal supine position. She woke from anesthesia with ease and was taken to the recovery room in stable condition. Findings: 1. Normal tubes, ovaries uterus 2. No intra-abdominal pathology noted, no scar tissue noted. EBL: 10 mL Pathology: 1. Right fallopian tube 2. Left fallopian tube Complications: None apparent Fluids: Crystalloid per anesthesia
[2021-11-10] MEDS: HYDROmorphone 2 MG/ML SYR IVP (16:30)
[2021-11-10] MEDS: Normal Saline 10 ML VIAL IJ (16:38)
--- NOTE | 2021-11-10 16:51 | W.ANESPOSTOP ---
Postoperative Evaluation Date, Time and Location Date Performed: 11/10/21 Time Performed: 16:51 Patient Location: PACU Vital Signs Most Recent Imported Vital Signs: Most Recent Vital Signs Temp Pulse Resp BP Pulse Ox 36.7 C 65 23 157/81 H 99 11/10/21 16:35 11/10/21 16:35 11/10/21 16:35 11/10/21 16:35 11/10/21 16:35 Pain Score Most Recent Pain Score: Most Recent Pain Score Pain Level 3 11/10/21 Assessment Mental Status: Awake (Alert & Oriented to Patient Baseline) Airway and Respiratory Function: Patent airway with normal (patient baseline) respiratory exam Cardiovascular Function: Hemodynamically Stable Hydration Status: Adequately Hydrated Nausea & Vomiting: No Nausea or Vomiting Pain: Pain is tolerable per patient Peripheral Nerve Block: Patient did not receive a nerve block
[2021-11-10] MEDS: HYDROmorphone 2 MG TAB PO (17:05)
== END 2021-11-10 18:01 | disposition home or self-care (01) ==
PROVIDERS: PCP Nurse Practitioner Family; Visit Provider Obstetrics & Gynecology
PROC: (CPT 58661; principal; 2021-11-10 13:15)
DX: Z30.2 Encounter for sterilization (principal); J45.909 Unspecified asthma, uncomplicated; F31.9 Bipolar disorder, unspecified; Z98.84 Bariatric surgery status
CPT/HCPCS: 58661; 81025; 87635; 88302; J0131; J1100; J1170; J2405; J2704; J3475

== ENCOUNTER 2022-02-21 02:49 | Outpatient (RCR) | payer MEDICAID, SELFPAY ==
[2022-02-14 10:15] VITALS: BP 132/79; PULSE 74; RESP 16; O2SAT 98
[2022-02-14] MEDS: FERUMOXYTOL 510 MG in Normal Saline 50 ML 134 MG IVPB (10:15)
[2022-02-14] MEDS: Normal Saline Flush 10 ML SYR IVP (10:17)
[2022-02-14 10:40] VITALS: BP 128/83; PULSE 78; RESP 16; O2SAT 98
== END 2022-03-12 23:59 | disposition home or self-care (01) ==
LOC: INF 02:49
PROVIDERS: PCP Nurse Practitioner Family; Visit Provider Internal Medicine
DX: D50.9 Iron deficiency anemia, unspecified (principal)
CPT/HCPCS: 96365

== ENCOUNTER 2022-06-10 01:22 | Outpatient (RCR) | payer MEDICAID, SELFPAY ==
[2022-05-18] MEDS: Prochlorperazine 10 MG TAB PO (08:30)
[2022-05-18] MEDS: Normal Saline Flush 10 ML SYR IVP (08:40)
[2022-05-18] MEDS: diphenhydrAMINE 50 MG/ML VIAL 25 MG IV (08:46)
[2022-05-18] MEDS: FERUMOXYTOL 510 MG in Normal Saline 50 ML 134 MG IVPB (09:15)
[2022-06-10] MEDS: Prochlorperazine 10 MG TAB PO (08:20)
[2022-06-10] MEDS: diphenhydrAMINE 50 MG/ML VIAL 25 MG IV (08:20)
[2022-06-10] MEDS: FERUMOXYTOL 510 MG in Normal Saline 50 ML 134 MG IVPB (09:21)
[2022-06-10] MEDS: Normal Saline Flush 10 ML SYR IVP (09:21)
== END 2022-06-10 23:59 | disposition home or self-care (01) ==
LOC: INF 01:22
PROVIDERS: PCP Nurse Practitioner Family; Visit Provider Nurse Practitioner Acute Care
DX: D50.9 Iron deficiency anemia, unspecified (principal)
CPT/HCPCS: 96365; 96374; 96375; J1200

== ENCOUNTER 2022-08-25 01:01 | Outpatient (RCR) | payer MEDICAID, SELFPAY ==
[2022-08-18] MEDS: diphenhydrAMINE 50 MG/ML VIAL 25 MG IV (08:08)
[2022-08-18] MEDS: Prochlorperazine 10 MG TAB PO (08:08)
[2022-08-18] MEDS: Normal Saline Flush 10 ML SYR IVP (08:09)
[2022-08-18] MEDS: FERUMOXYTOL 510 MG in Normal Saline 50 ML 134 MG IVPB (08:34)
[2022-08-25] MEDS: Prochlorperazine 10 MG TAB PO (08:00)
[2022-08-25] MEDS: diphenhydrAMINE 50 MG/ML VIAL 25 MG IVP (08:05)
[2022-08-25] MEDS: FERUMOXYTOL 510 MG in Normal Saline 50 ML 134 MG IVPB (08:20)
[2022-08-25] MEDS: Normal Saline Flush 10 ML SYR IVP (08:20)
== END 2022-09-09 23:59 | disposition home or self-care (01) ==
LOC: INF 01:01
PROVIDERS: PCP Nurse Practitioner Family; Visit Provider Nurse Practitioner Acute Care
DX: D50.9 Iron deficiency anemia, unspecified (principal)
CPT/HCPCS: 96365; 96374; 96375; J1200